=== PATIENT | male | born 1955 | race Caucasian/White ===

== ENCOUNTER 2017-03-02 19:30 | Inpatient (IN) | payer BC, OTHER ==
[~2017-03-02] VITALS: Ht 193 cm; Wt 92.7 kg
[2017-03-02] MEDS ORDERED: GLUCAGON FOR INJ 1 MG VIAL IV STA (19:50)
[2017-03-02] MEDS ORDERED: ONDANSETRON INJ 2 MG/ML 2 ML VIAL IV STA (19:50)
[2017-03-02] MEDS ORDERED: PROPOFOL IV EMULSION 10 MG/ML 20 ML VIAL IV ONE ×2 (20:28→22:52)
[2017-03-02] MEDS ORDERED: DEXAMETHASONE SOD INJ 4 MG/ML VIAL ONE (20:28)
[2017-03-02] MEDS ORDERED: SUCCINYLCHOLINE CHLORIDE 20 MG/ML 10 ML VIAL IV ONE (20:28)
[2017-03-02] MEDS ORDERED: MIDAZOLAM HCL 1 MG/ML 2ML VIAL ONE (20:28)
[2017-03-02] MEDS ORDERED: LIDOCAINE HCL 2% 2 ML VIAL (20MG/ML) ONE (20:28)
[2017-03-02] MEDS ORDERED: ONDANSETRON INJ 2 MG/ML 2 ML VIAL ONE ×2 (20:28→22:30)
[2017-03-02] MEDS ORDERED: FENTANYL CITRATE INJ 50 MCG/1 ML 2 ML VIAL ONE (20:28)
[2017-03-02] MEDS ORDERED: ROCURONIUM BROMIDE 10 MG/ML 5 ML VIAL ONE ×2 (20:28→22:11)
[2017-03-02] MEDS ORDERED: LACTATED RINGER'S 1000ML 1,000 ML IV PRN (20:39)
[2017-03-02] MEDS ORDERED: ONDANSETRON INJ 2 MG/ML 2 ML VIAL IV PRN (20:45)
[2017-03-02] MEDS ORDERED: FENTANYL CITRATE INJ 50 MCG/1 ML 2 ML VIAL IV PRN (20:45)
--- NOTE | 2017-03-02 20:52 | Endo History and Physical ---
History & Physical Date of Service: Mar 02, 2017. Chief Complaint: "I have food stuck in my throat" Referring Physician: Dr. Carvalho History of Present Illness 61 yo CM who presented to the ER tonight following his evening meal, with an acute obstruction of his esophagus. He states that he was eating a pork chop, and felt a piece get "stuck" in his esophagus. He was not able to tolerate fluids, or his own secretions and presented to the ER. He denies any history of GERD or daily PPI or H2RA therapy. He does admit to having a "piece of food stuck about ten years ago, but it passed on its own." He denies any further complaints at this time including abdominal or chest pain, palpitations, SOB, Cough, hematemesis, melena or hematochezia. Past Medical History None Past Surgical History Hx Cardiac Surgery: No Hx Internal Defibrillator: No Hx Pacemaker: No Hx Abdominal Surgery: No Hx of Implantable Prosthesis: No Hx Post-Op Nausea and Vomiting: No Hx Cancer Surgery: No Hx Thoracic Surgery: No Hx Orthopedic: No Hx Urinary Tract Surgery: No None Family History None Social History Smoking Status: Never Smoker Smokeless Tobacco Use: No Hx Substance Use: No Hx Alcohol Use: Yes Allergies Coded Allergies: No Known Allergies (Unverified , 03/02/17) Current Medications Reported Home Medications Medications Dose Route/Sig Max Daily Dose Days Date Category No Active Prescriptions or Reported Medications Rx Vital Signs Weight (Kilograms): 95.000 Height (Feet): 6 Height (Inches): 4.00 Date Time Temp Pulse Resp B/P Pulse Ox O2 Delivery O2 Flow Rate FiO2 03/02/17 19:41 95 Room Air 03/02/17 19:32 36.6 97 20 146/90 95 Room Air Physical Exam General Appearance: WD/WN, no apparent distress Respiratory/Chest: Auscultation: breath sounds normal Cardiovascular: Heart Auscultation: RRR Abdomen: Bowel Sounds: normal Inspection & Palpation: soft, non-distended, no tenderness, guarding & rebound Assessment and Plan Assessment: 61 yo CM who presents with an acute dysphagia from a food bolus. Plan: Emergent EGD now
--- NOTE | 2017-03-02 21:58 | GI REPORT ---
Procedure Date: 03/02/2017 8:37 PM Procedure: Upper GI endoscopy Indications: Removal of foreign body in the esophagus Medicines: General Anesthesia Complications: Hypoxia Estimated Blood Loss: Estimated blood loss: none. Procedure: Pre-Anesthesia Assessment: - Prior to the procedure, a History and Physical was performed, and patient medications and allergies were reviewed. The patient's tolerance of previous anesthesia was also reviewed. The risks and benefits of the procedure and the sedation options and risks were discussed with the patient. All questions were answered, and informed consent was obtained. Prior Anticoagulants: The patient has taken no previous anticoagulant or antiplatelet agents. ASA Grade Assessment: II - A patient with mild systemic disease. After reviewing the risks and benefits, the patient was deemed in satisfactory condition to undergo the procedure. After obtaining informed consent, the endoscope was passed under direct vision. Throughout the procedure, the patient's blood pressure, pulse, and oxygen saturations were monitored continuously. The Scope was introduced through the mouth, and advanced to the second part of duodenum. The upper GI endoscopy was accomplished without difficulty. The procedure was aborted due to the patient's respiratory instability (hypoxia). Performing chin lift, administering oxygen and treating with ventilation did not allow for the successful completion of the procedure. Dr. Rasheed of Anesthesia performed a bronchoscopy and noted food in the left bronchus. Findings: Food was found in the middle third of the esophagus and in the lower third of the esophagus. Removal of food was accomplished. Mucosal changes including ringed esophagus and stenosis were found in the entire esophagus. The stomach was normal. The examined duodenum was normal. Impression: - The procedure was aborted due to the patient's respiratory instability (hypoxia). Dr. Malone was consulted for bronchoscopy. - Food in the middle third of the esophagus and in the lower third of the esophagus. Removal was successful. - Esophageal mucosal changes suggestive of eosinophilic esophagitis. - Normal stomach. - Normal examined duodenum. Recommendation: - Use Protonix (pantoprazole) 40 mg PO daily. - Soft diet indefinitely. - Repeat the upper endoscopy in 2 weeks for biopsies of the mid-esophagus and possible dilation. Boogie Amato, 03/02/2017 9:57:30 PM This report has been signed electronically. Note Initiated On: 03/02/2017 8:37 PM I attest to the content of the Intraoperative Record and orders documented therein, exceptions below
[2017-03-02] MEDS ORDERED: NEOSTIGMINE METHYLSULFATE 5 MG/5 ML SYR ONE (22:11)
[2017-03-02] MEDS ORDERED: GLYCOPYRROLATE INJ 0.2 MG/ML VIAL ONE ×2 (22:11→23:27)
--- NOTE | 2017-03-02 23:45 | EMERGENCY ROOM VISIT NOTE ---
History Report prepared by Bette: Zachary Denton Under the Supervision of: Dr. Yann Mesa D.O. First contact with patient: 19:44 Chief Complaint: FOOD BOLUS Stated Complaint: SOMETHING STUCK IN THROAT Nursing Triage Summary: eating a pork chop at 1800 and now cannot swallow liquids. History of Present Illness The patient is a 61 year old male who presents to the Emergency Room with complaints of a persistent food bolus that occurred around 1815 tonight. The patient states that he was eating a piece of pork chop that "didn't go down correctly." He tried to wash this down with water and coca cola, which he vomited back up. The patient denies trouble swallowing his saliva. Source of History: patient Onset: 1814 tonight Position: other (GI system ) Timing: other (Persistent ) Modifying Factors (Relieving): other (None) Associated Symptoms: + vomiting Review of Systems See HPI for pertinent positives & negatives. A total of 10 systems reviewed and were otherwise negative. Past Medical & Surgical Medical Problems: (1) No chronic problems Family History Unknown family medical history Social History Smoking Status: Never Smoker Drug Use: none Marital Status: Housing Status: lives with family Occupation Status: employed Current/Historical Medications No Active Prescriptions or Reported Meds Allergies Coded Allergies: No Known Allergies (Unverified , 03/02/17) Physical Exam Vital Signs Date Time Temp Pulse Resp B/P Pulse Ox O2 Delivery O2 Flow Rate FiO2 03/02/17 20:40 84 18 138/83 95 Room Air 03/02/17 19:41 95 Room Air 03/02/17 19:32 36.6 97 20 146/90 95 Room Air Physical Exam CONSTITUTIONAL/VITAL SIGNS: Reviewed / noted above. GENERAL: Non-toxic in appearance. INTEGUMENTARY: Warm, dry, and Mertens. HEAD: Normocephalic. EYES: without scleral icterus or trauma. ENT/OROPHARYNX: clear and moist. LYMPHADENOPATHY/NECK: Is supple without lymphadenopathy or meningismus. RESPIRATORY: Lungs clear and equal. CARDIOVASCULAR: Regular rate and rhythm. GI/ABDOMEN: Soft and nontender. No organomegaly or pulsatile mass. No rebound or guarding. Normal bowel sounds. EXTREMITIES: Warm and well perfused. BACK: No CVA tenderness. NEUROLOGICAL: Intact without focal deficits. PSYCHIATRIC: normal affect. MUSCULOSKELETAL: Normally developed with good muscle tone. Medical Decision & Procedures Medications Administered Medications (Trade) Dose Ordered Sig/Rosalva Route Start Time Stop Time Status Last Admin Dose Admin Glucagon (Glucagon Inj) 1 mg NOW STAT IV 03/02/17 19:50 03/02/17 19:51 DC 03/02/17 19:50 1 MG Ondansetron HCl (Zofran Inj) 4 mg NOW STAT IV 03/02/17 19:50 03/02/17 19:51 DC 03/02/17 20:04 4 MG ED Course 1945: Previous medical records were reviewed. The patient was evaluated in room C2. A complete history and physical examination was performed. 1949: Ordered Zofran Injection 4 mg IV, Glucagon Injection 1 mg IV. 1955: I discussed the patient's case with Dr. Amato (GI). He will evaluate the patient for further management and care. 2033: The patient is going to OR for endoscopy with Dr. Amato. Medical Decision Differential diagnosis: Etiologies such as gastroenteritis, food borne illness, infections, appendicitis , diverticulitis, inflammatory bowel disease, esophageal obstruction, GI bleed, biliary pathology, as well as others were entertained. This is a 61-year-old male who presents to the ED with a chief complaint of esophageal bolus. The patient was eating pork chops around 6:15 PM and was unable to swallow after that. The patient states it is unable to swallow water. The patient was treated with IV fluids and glucagon IV. I spoke with Dr. Amato who took the patient to the OR for endoscopy. Consults Time Called: 1950 Consulting Physician: Dr. Amato (GI) Returned Call: 1955 I discussed the patient's case with Dr. Amato (GI). He will evaluate the patient for further management and care. Impression Primary Impression: Esophageal obstruction due to food impaction Scribe Attestation The scribe's documentation has been prepared under my direction and personally reviewed by me in its entirety. I confirm that the note above accurately reflects all work, treatment, procedures, and medical decision making performed by me. Departure Information Dispostion Being Evaluated By Hospitalist Prescriptions No Active Prescriptions or Reported Meds Referrals Kevin Carvalho D.O. (PCP) Patient Instructions My [facility]
--- NOTE | 2017-03-02 23:54 | Bronchoscopy Procedure Note ---
Bronchoscopy Procedure Note Procedure: Rigid and flexible Bronchoscopy, forcep retrieval Consent: Obtained through the patient's placed into the chart Preprocedural diagnosis: Aspiration of a pork chop Postprocedural diagnosis: Aspiration of a pork chop Start time: Please refer to anesthesia time she End time: Please refer to anesthesia time she Total time: Please refer to anesthesia time she Analgesia: GETA Sedation: GETA Procedure: The Olympus video bronchoscope and the Magency Digital rigid bronchoscope were used for this procedure Initially the Olympus flexible video bronchoscope was passed down through the endotracheal tube was approximately 4 cm above the level of deisi. Trachea: Diffuse aspiration secretions but otherwise anatomically within normal limits Deisi: Diffuse aspirated secretions otherwise anatomically within normal limits Right bronchial tree: Right mainstem bronchus: Anatomically within normal limits Right upper lobe: Anatomically within normal limits Bronchus intermedius: Anatomically within normal limits Right middle lobe: Anatomically within normal limits Right lower lobe: Anatomically within normal limits Findings: Diffuse aspirated material with the lung parenchyma easily friable to minimal bronchoscopic intervention Left bronchial tree: Left mainstem bronchus: 3 large aspirated food particulates in the left mainstem without complete obstruction Left upper lobe: Diffuse aspirated material obstructing the apical subsegment of the left upper lobe Lingula: Diffuse aspirated material Left lower lobe: Multiple aspirated material obstructing the left lower lobe takeoff Findings: Multiple subsegments occluded by aspirated material As we were unable to remove the larger particulates from the airway we then switched to the Dumon rigid trachea-scope size 12.2 The patient was extubated in the trachea scope was easily slid into position. Following this the large optical forceps were used for removal of 3 large pieces of aspirated material from the left mainstem. Following this the forceps were used to remove large particulates obstructing the takeoff to the left upper lobe apical subsegment as well as obstructing the left lower lobe. Within switch back to the Olympus flexible bronchoscope and all subsegments were flushed clean of all particulate material. At the end of the procedure the airways were globally inflamed can easily friable to minimal manipulation. Complications: None EBL: 3 cc Follow-up: Patient is to be extubated and followed in the PACU
[2017-03-03] VITALS (19 sets, daily range): BP systolic 103–133; BP diastolic 55–79; PULSE 76–104; TEMP 36.5–37.2; O2SAT 85–97; Ht 193 cm; Wt 92.7 kg
--- NOTE | 2017-03-03 00:03 | Pulmonary Consultation ---
History General Date of Service: Mar 02, 2017. Stated Complaint: Something Stuck In Throat, aspirated material HPI The patient is a 61 year old male who presents to [facility] with complaints of Something Stuck In Throat. The patient's primary care provider is Kevin Carvalho D.O.. 61-year-old gentleman brought into the ER following aspiration event during his meal. He was noted to have obstruction of his esophagus was brought to the operating room where EGD and foreign-body removal did occur. During the intubation prior to the procedure. The patient was noted to have immediate desaturation was signs via flow volume loop of notable intra-bronchial/tracheal obstruction. Due to this the anesthesiologist performed a quick bronchoscopic survey and noted complete obstruction of the left mainstem. I was then called to help retrieve this material. When I arrived the patient was intubated and obtunded. I did speak to his at length and obtained consent for initiation of bronchoscopy, rigid bronchoscopy in foreign-body removal. Historian: spouse, EMS Review of Systems Patient was intubated and obtunded Past Medical History Past Medical History: #1 possible aspiration event 10 years prior Past Surgical History: No significant contributory history Family History Unknown family medical history Social History Smoking Status: Never Smoker Marital status: Occupational Status: employed History of MDRO History of MDRO: No Allergies Coded Allergies: No Known Allergies (Unverified , 03/02/17) Current Medications Reported Home Medications Medications Dose Route/Sig Max Daily Dose Days Date Category No Active Prescriptions or Reported Medications Rx Physical Physical Exam Vital Signs: Date Time Temp Pulse Resp B/P Pulse Ox O2 Delivery O2 Flow Rate FiO2 03/02/17 20:40 84 18 138/83 95 Room Air 03/02/17 19:41 95 Room Air 03/02/17 19:32 36.6 97 20 146/90 95 Room Air General Appearance: other (intubated and obtunded) Head: NORMOCEPHALIC, ATRAUMATIC Eyes: other (size 8 ET tube approximately 26 cm at the teeth.) Neck: TRACHEA MIDLINE, NO STRIDOR Respiratory: rhonchi, wheezing Cardiovasular: REGULAR RATE/RHYTHM, NORMAL S1S2, NO M/G/R, NO MURMUR, NO GALLOP Abdomen: NON TENDER, NORMAL BOWEL SOUNDS, NO REBOUND, NO MASSES, NO GUARDING, NO ORGANOMEGALY Genitourinary - Male: EXTERNAL GENITALIA NORMAL Back: NORMAL INSPECTION, NO MIDLINE TENDERNESS, NO CVA TENDERNESS, NO PARAVERTEBRAL TTP Upper Extremities: NO EDEMA, NO DEFORMITY, NORMAL ROM Lower Extremities: NO EDEMA, NO DEFORMITY, NORMAL ROM Pulses: carotid (R) (2+), carotid (L) (2+), posterior tibial (R), posterior tibial (L) (2+) Neuro: other (intubated and obtunded/sedated) Reflexes: biceps (R) (2+), bicpes (L) (2+) Babinski Testing: right (downgoing), left (downgoing) Impression Assessment and Plan 61-year-old gentleman with aspirated material: Next on #1 aspirated material: Patient underwent flexible bronchoscopy as well as rigid bronchoscopy with removal of diffuse mucus/food particulate as well as 3 large pieces which were intermittently obstructing the left mainstem. Please review dictated report of the procedure.
[2017-03-03] MEDS ORDERED: LEVALBUTEROL 1.25MG/0.5ML NEB INH PRN (01:15)
[2017-03-03] MEDS ORDERED: IPRATROPIUM BROMIDE NEB SOLN 0.02% 2.5 ML VIAL INH PRN (01:15)
[2017-03-03] MEDS ORDERED: COUGH DROP (SUGAR FREE) LOZ 24 LOZ/1 BOX ONE (01:19)
[2017-03-03] MEDS ORDERED: CHLORASEPTIC 1.4% SOLN 180 ML BTL MT PRN (01:30)
[2017-03-03] MEDS ORDERED: NURSING VERBAL MED ORDER ONE (01:30)
[2017-03-03 01:31] LABS: URINE APPEARANCE CLEAR (CLEAR); URINE BILIRUBIN NEG (NEG); URINE COLOR YELLOW; URINE EPITHELIAL CELL AUTO 0-5 /lpf (0-5); URINE NITRITE NEG (NEG); URINE PH 5.5 (4.5-7.5); URINE SPECIFIC GRAVITY 1.016 (1.000-1.030); UROBILINOGEN NEG (NEG)
[2017-03-03 01:32] LABS: MANUAL MICROSCOPIC REQUIRED? NO; REVIEW REQ? NO
[2017-03-03 01:38] LABS: PARTIAL THROMBOPLASTIN RATIO 1.2; PROTHROMBIN TIME (PATIENT) 10.8 SECONDS (9.0-12.0)
[2017-03-03 01:51] LABS: BASO % 1.2 %; BASO ABS # 0.08 K/uL (0-0.2); EOS % 3.6 %; LYMPH % 28.7 %; LYMPH ABS # 1.86 K/uL (1.2-3.4); MEAN CELL VOLUME 84.8 fL (80-100); MEAN CORPUSCULAR HEMOGLOBIN 30.7 pg (25-34); MEAN PLATELET VOLUME 9.2 fL (7.4-10.4); NEUT % 51.5 %; PLATELET COUNT 207 K/uL (130-400); RED BLOOD COUNT 4.95 M/uL (4.7-6.1); WHITE BLOOD COUNT 6.47 K/uL (4.8-10.8)
[2017-03-03] MEDS: IPRATROPIUM BROMIDE NEB SOLN 0.02% 2.5 ML VIAL INH SCH ×4 (01:56→19:25)
[2017-03-03] MEDS: LEVALBUTEROL 1.25MG/0.5ML NEB INH SCH ×4 (01:56→19:25)
[2017-03-03 02:06] LABS: COMPLETE YES; MEAN CORPUSCULAR HGB CONC 36.2 g/dl (32-36)
[2017-03-03 02:07] LABS: ALB/GLOB RATIO 1.1 (0.9-2); ALKALINE PHOSPHATASE 63 U/L (45-117); ALT/SGPT 32 U/L (12-78); AST/SGOT 28 U/L (15-37); BLOOD UREA NITROGEN 22 mg/dl (7-18); BUN/CREATININE RATIO 16.6 (10-20); CALCIUM 8.8 mg/dl (8.5-10.1); CARBON DIOXIDE 29 mmol/L (21-32); CHLORIDE 105 mmol/L (98-107); CKMB/CK RATIO 1.6 (0-3.0); GLUCOSE 104 mg/dl (70-99); SODIUM 141 mmol/L (136-145)
--- NOTE | 2017-03-03 02:51 | Anesthesiology Progress Note ---
Anesthesia Post Op Note Date & Time Mar 03, 2017 at 00:38 Vital Signs Pain Intensity: 0 Vital Signs Past 12 Hours Date Time Temp Pulse Resp B/P Pulse Ox O2 Delivery O2 Flow Rate FiO2 03/02/17 20:40 84 18 138/83 95 Room Air 03/02/17 19:41 95 Room Air 03/02/17 19:32 36.6 97 20 146/90 95 Room Air Notes Mental Status: alert / awake / arousable, participated in evaluation Pt Amnestic to Procedure: Yes Nausea / Vomiting: adequately controlled Pain: adequately controlled Airway Patency, RR, SpO2: stable & adequate BP & HR: stable & adequate Hydration State: stable & adequate Anesthetic Complications: see below Pt w/ no PMH came in w/ food bolus (pork chop). Plan was to undergo EGD by Dr. Amato. When I met the pt pre-op, he was spitting into a bag, clearly not able to swallow his secretions. He appeared to be in no respiratory distress, was satting 95% on RA, and his lungs sounded clear b/l. Given the aspiration risk, my plan was for general anesthesia w/ endotracheal tube using rapid sequence induction (RSI) and cricoid pressure. We went to the OR. I applied monitors and pre-oxygenated for several minutes. I kept the head of the bed elevated. Just as I began to give the propofol to start the RSI and as cricoid pressure was starting to be applied, the pt began coughing. I finished the propofol, gave the succinylcholine, and began direct laryngoscopy w/ a Mac 4. I saw a moderate amount of thin, clear fluid (looked like saliva) in the oropharynx along w/ a very scant amount of particulate matter (looked like tiny pieces of food). I easily suctioned this. I then got a grade I view of the cords, which were completely clear of any material. I passed the tip of the tube through the cords but due to the angle of the cords, the tip was hitting the anterior wall of the trachea just beyond the cords so that I could not easily pass the tube. I asked for the stylet to be withdrawn and I was then able to gently pass the tube through the cords. Other than the few seconds of suctioning and pulling back on the stylet, the intubation was easy. I confirmed end tidal CO2 and equal breath sounds so I secured the tube, which was fairly deep at 25 or 26 cm given the pt's size. The bite block was placed for the EGD. SpO2 immediately after intubation was in the mid-high 90s. Dr. Amato began the procedure and was very quickly able to push the food bolus into the stomach. He was then preparing to biopsy the esophagus when I heard the SpO2 begin to decrease. I noticed the ETCO2 decreasing and airway pressures increasing until there was minimal ETCO2 and alarms for high airway pressure. I told Dr. Amato to remove his scope which he quickly did. I tried to hand ventilate with the bag but met a lot of resistance and was unable to move any significant amount of air. The pt appeared to be fighting w/ his own respiratory efforts so I gave additional neuromuscular blockade. I saw no obvious obstruction in the circuit and felt bronchospasm to be unlikely given what should have been an adequate depth of anesthesia and no h/o reactive airway disease or smoking. I was concerned about mechanical obstruction within the tube or a problem w/ the ventilator on the anesthesia machine so I asked for an Ambu bag and removed the tube. I saw nothing significant in the tube. I quickly inserted an oral airway and began attempting ventilation (2 provider technique). We did appear to be moving some air though it was difficult. The lowest SpO2 I saw was 78%. With mask ventilation, it krissy to the mid 80s. Since we were now able to ventilate somewhat, I felt that whatever obstruction was present previously had improved, so I decided to reintubate. I asked for a Glidescope. I easily obtained a grade I view and quickly passed the tube through the cords which again required pulling back on the stylet. I was able to ventilate through the tube w/ the Ambu bag. I saw chest rise and Dr. Amato heard coarse, b/l breath sounds. SpO2 continued to slowly rise. I removed the Ambu bag and hooked the tube to my circuit. I saw ETCO2. I listened and heard minimal breath sounds on the left side and airway pressures were higher than expected given the pt's thin stature. These two factors would suggest that the tube was in the right mainstem bronchus, which would seem likely given the tube's depth around 26 cm, but I knew this not to be the case since I watched the cuff of the tube pass the cords when I intubated and stopped. This was at 26 cm. I therefore knew that the tube was in the trachea but that something was preventing ventilation of the left lung. This suspicion was reinforced by capnography which revealed an obvious obstructive pattern. I considered a foreign body (food) and asked for the flexible bronchoscope. At this point, the SpO2 was in the mid 90s. It had continued to slowly rise. Total time spent < 90% was < 5 minutes. I advanced the flexible bronchoscope until it emerged from the tip of the tube. I saw the deisi and could clearly see a foreign body at the takeoff of the left mainstem bronchus nearly obstructing the lumen. I saw nothing on the right. I advanced into the right side to see the takeoff of the right upper lobe bronchus to confirm that the bifurcation that I saw just beyond the tube was indeed the deisi, and it was. I again saw nothing on the right. I pulled back to deisi and again saw the foreign body on the left. I hooked up suction and gave one attempt at removing it but was unable as it appeared to be too large. I stopped as I didn't want pull it back and occlude the deisi, totally abolishing ventilation (again). While the foreign body appeared visually to obstruct a significant portion of the left mainstem bronchus, it did appear that some air was able to pass it. It would rise and fall slightly with ventilation. I tried to keep my airway pressures to a minimum to avoid sending the piece more distally. We paged Pulmonary Medicine. At this point, SpO2 was 98%. Dr. Amato spoke to Dr. Malone who quickly arrived. I told him the story. He did a quick bronch w/ my portable flexible scope and saw a foreign body in the left mainstem, but it was not as obvious as before. A portion of it seemed to have migrated. We waited for the respiratory therapist to arrive w/ the necessary equipment. Meanwhile, Dr. Amato paged Dr. Valencia, gave him the story, and asked him to admit the pt and see him after he left the OR. When the RT arrived, Dr. Malone began a flexible bronchoscopy using the RT's scope. He found material scattered about both lungs but was unable to remove it w/ the flexible scope. He asked for the rigid bronchoscope. Once it arrived and the necessary equipment was ready, he placed a mouth guard and I turned off the anesthetic gas and extubated the pt after suctioning the oropharynx. He passed the scope through the cords. I hooked my circuit to the scope and began to ventilate or at least passively oxygenate. SpO2 was 96-97% throughout the procedure. I maintained anesthesia w/ propofol. He again found material scattered about both lungs and removed what he could. When he was done, my plan was to reintubate so that I could reverse the neuromuscular blockade and emerge the pt gradually and extubate when he was fully awake and able to protect his airway. I again got a grade I view w/ the Glidescope but at this point, the pt was breathing spontaneously and his cords were not widely open. I was unable to easily pass the tube. Since he was beginning to emerge, was satting in the mid-high 90s, and appeared to have nothing in the oropharynx, I decided to not reintubate the pt. I placed an oral airway and gave O2 via simple facemask. I tried to suction as much as I could w/ the Yankauer and a soft catheter but he still sounded like he had some secretions in his upper airway. He was beginning to arouse, cough, and SpO2 was stable in the mid 90s so we left the OR. We went to the ICU to recover due to the time of day. Vitals were stable. SpO2 was 95% on 10 L facemask. He continued to wake up and cough to clear his airway. I went to talk to the pt's . We had a lengthy discussion. I explained to her what happened and answered her questions the best I could. I went back to see the pt in the ICU and Dr. Valencia was there. I gave him the story. At this point, the pt's SpO2 was in the mid 90s on 4L NC. He was awake and asking questions and his was at his side. He's going to be admitted to PCU per Dr. Valencia. He's getting a CXR, starting antibiotics, and starting nebulizers. The pt will have to be watched carefully over the next 12-24 hours as he will likely have a chemical pneumonitis and could develop ARDS. Though the exact moment of aspiration was not obvious, I think it is unlikely that it happened before he went to the OR since he was not coughing, was in no respiratory distress, had clear lungs, and a normal SpO2 on room air. It likely occurred when the pt began coughing just before induction (though it is unusual that I saw no particulate matter around the cords and minimal in the oropharynx) . This would explain why I was suddenly unable to ventilate, not immediately after, after but shortly after intubation. The aspirated material was likely initially in the trachea, then migrated to completely occlude the deisi temporarily. It then migrated further so that I could ventilate, though largely only the right lung for a time. Though it appeared initially to have only gone to the left mainstem bronchus, this was apparently only one large piece, as material was found throughout both sides.
[2017-03-03] MEDS ORDERED: LEVALBUTEROL/IPRATROPIUM NEB INH SCH (03:00)
[2017-03-03] MEDS ORDERED: PIPERACILL/TAZOBAC IV 4.5 GM in DEXTROSE 5% 100ML 100 ML IV SCH (03:15)
[2017-03-03] MEDS ORDERED: PIPERACILL/TAZOBAC IV 3.375 GM in DEXTROSE 5% 100ML IV STA (03:26)
[2017-03-03] MEDS ORDERED: PIPERACILL/TAZOBAC CONSULT ACTIVE PRN (03:30)
--- NOTE | 2017-03-03 04:47 | Medical Consult ---
Consultation Date of Consultation: Mar 03, 2017. THIS IS AN ADMISSION NOTE. Attending Physician: Eleno Valencia M.D. Reason for Consultation: Aspiration pneumonitis History of Present Illness 61-year-old male with no significant past medical history presented to the ER with complaints of "something stuck in his esophagus" while he was eating a pork chop. He had difficulty swallowing any fluids. He did have a similar episode about 10 years ago when he had a piece of food stuck but it had passed on its own. He was taken for an emergent EGD . The food bolus was pushed into his stomach. He was noted to have desaturations to around 78 and a quick bronchoscopic survey by the anesthesiologist revealed complete obstruction of his left mainstem bronchus. Dr. Malone was consulted who performed a flexible bronchoscopy and rigid bronchoscopy and retrieved 3 large pieces of aspirated material from the left main stem bronchus. He was recovered in the ICU and placed on a mask with 10 L O2. He was transferred to telemetry for further monitoring. He is currently on 5 L O2 via nasal cannula. Denies any chest pain/tightness, shortness of breath, palpitations, dizziness. Complains of soreness in his throat. Past Medical/Surgical History Medical Problems: (1) Esophageal obstruction due to food impaction Status: Acute Family History Unknown family medical history Social History Smoking Status: Never Smoker Smokeless Tobacco Use: No Drug Use: none Marital Status: Housing Status: lives with family Occupation Status: employed Allergies Coded Allergies: No Known Allergies (Verified , 03/21/17) Current Inpatient Medications Current Inpatient Medications Medications (Trade) Dose Ordered Sig/Rosalva Route Start Time Stop Time Status Last Admin Dose Admin Ondansetron HCl (Zofran Inj) 4 mg Q6H PRN IV 03/03/17 00:15 04/02/17 00:14 Ipratropium [place] (Atrovent 0.02% 0.5MG/2.5ML Neb) 0.5 mg Q6R INH 03/03/17 03:00 04/02/17 02:59 03/03/17 01:56 0.5 MG Levalbuterol (Xopenex 1.25MG/ 0.5ML Neb) 1.25 mg Q6R INH 03/03/17 03:00 04/02/17 02:59 03/03/17 01:56 1.25 MG Ipratropium [place] (Atrovent 0.02% 0.5MG/2.5ML Neb) 0.5 mg Q2H PRN INH 03/03/17 01:15 04/02/17 01:14 Levalbuterol (Xopenex 1.25MG/ 0.5ML Neb) 1.25 mg Q2H PRN INH 03/03/17 01:15 04/02/17 01:14 Phenol 1 sprays 1 sprays Q2H PRN MT 03/03/17 01:30 04/02/17 01:29 03/03/17 01:58 1 SPRAYS Piperacillin Sod/ Tazobactam Sod/ Dextrose (Zosyn Iv/D5 100ml) 115 ml @ 28.75 mls/ hr Q8H IV 03/03/17 08:00 03/10/17 07:59 Piperacillin Sod/ Tazobactam Sod (Consult) 1 ea UD PRN N/A 03/03/17 03:30 04/02/17 03:29 Review of Systems Constitutional: No chills, No fever ENT: + sore throat, No hearing loss Respiratory: No cough, No dyspnea on exertion Cardiovascular: No chest pain Abdomen: No nausea, No pain, No vomiting Genitourinary - Male: No hematuria Neurologic: No memory loss Physical Exam Date Time Temp Pulse Resp B/P Pulse Ox O2 Delivery O2 Flow Rate FiO2 03/03/17 03:25 37.0 93 20 128/74 96 Nasal Cannula 4.0 03/03/17 02:25 36.5 99 19 132/79 95 Nasal Cannula 5.0 03/03/17 01:57 88 16 95 Nasal Cannula 5.0 03/03/17 01:55 36.8 96 20 122/73 97 Nasal Cannula 5.0 03/03/17 01:25 37.2 82 22 129/76 94 Nasal Cannula 5.0 03/03/17 01:10 81 20 122/79 93 Nasal Cannula 5.0 03/03/17 00:55 37.0 81 26 133/77 92 Nasal Cannula 5.0 03/03/17 00:40 36.8 84 30 131/71 92 Nasal Cannula 5.0 03/03/17 00:38 Nasal Cannula 5.0 03/03/17 00:20 78 19 131/80 93 Nasal Cannula 4 03/03/17 00:10 76 19 124/85 93 Nasal Cannula 4 03/03/17 00:01 82 21 157/79 94 Nasal Cannula 6 03/02/17 23:46 88 21 126/87 94 Mask 8 03/02/17 23:40 36.4 91 21 137/85 95 Mask 10 03/02/17 20:40 84 18 138/83 95 Room Air 03/02/17 19:41 95 Room Air 03/02/17 19:32 36.6 97 20 146/90 95 Room Air General Appearance: WD/WN, no apparent distress Head: normocephalic Eyes: normal inspection Neck: supple Respiratory/Chest: no respiratory distress, no accessory muscle use, + rhonchi , + wheezing Cardiovascular: + tachycardia Abdomen/GI: normal bowel sounds, non tender, soft Genitourinary - Male: normal male genitalia Back: normal inspection Extremities/Musculoskelatal: normal inspection, no pedal edema Neurologic/Psych: alert, normal mood/affect, oriented x 3 Skin: normal color Laboratory Results Last 24 Hours Test 03/02/17 19:56 03/03/17 01:05 White Blood Count 6.47 K/uL Red Blood Count 4.95 M/uL Hemoglobin 15.2 g/dL Hematocrit 42.0 % Mean Corpuscular Volume 84.8 fL Mean Corpuscular Hemoglobin 30.7 pg Mean Corpuscular Hemoglobin Concent 36.2 g/dl Platelet Count 207 K/uL Mean Platelet Volume 9.2 fL Neutrophils (%) (Auto) 51.5 % Lymphocytes (%) (Auto) 28.7 % Monocytes (%) (Auto) 15.0 % Eosinophils (%) (Auto) 3.6 % Basophils (%) (Auto) 1.2 % Neutrophils # (Auto) 3.33 K/uL Lymphocytes # (Auto) 1.86 K/uL Monocytes # (Auto) 0.97 K/uL Eosinophils # (Auto) 0.23 K/uL Basophils # (Auto) 0.08 K/uL RDW Standard Deviation 41.7 fL RDW Coefficient of Variation 13.6 % Immature Granulocyte % (Auto) 0.0 % Immature Granulocyte # (Auto) 0.00 K/uL Prothrombin Time 10.8 SECONDS Prothromb Time International Ratio 1.0 Activated Partial Thromboplast Time 30.1 SECONDS Partial Thromboplastin Ratio 1.2 Sodium Level 141 mmol/L Potassium Level 4.0 mmol/L Chloride Level 105 mmol/L Carbon Dioxide Level 29 mmol/L Anion Gap 7.0 mmol/L Blood Urea Nitrogen 22 mg/dl Creatinine 1.30 mg/dl Est Creatinine Clear Calc Drug Dose 75.1 ml/min Estimated GFR () 69.2 Estimated GFR (Non- 59.7 BUN/Creatinine Ratio 16.6 Random Glucose 104 mg/dl Calcium Level 8.8 mg/dl Total Bilirubin 0.6 mg/dl Aspartate Amino Transf (AST/SGOT) 28 U/L Alanine Aminotransferase (ALT/SGPT) 32 U/L Alkaline Phosphatase 63 U/L Total Creatine Kinase 228 U/L Creatine Kinase MB 3.6 ng/ml Creatine Kinase MB Ratio 1.6 Troponin I < 0.015 ng/ml Total Protein 7.8 gm/dl Albumin 4.0 gm/dl Globulin 3.8 gm/dl Albumin/Globulin Ratio 1.1 Urine Color YELLOW Urine Appearance CLEAR Urine pH 5.5 Urine Specific [place] 1.016 Urine Protein NEG Urine Glucose (UA) NEG Urine Ketones 1+ Urine Occult Blood 1+ Urine Nitrite NEG Urine Bilirubin NEG Urine Urobilinogen NEG Urine Leukocyte Esterase NEG Urine WBC (Auto) 0 /hpf Urine RBC (Auto) 10-30 /hpf Urine Hyaline Casts (Auto) 0 /lpf Urine Epithelial Cells (Auto) 0-5 /lpf Urine Bacteria (Auto) NEG Assessment & Plan 61-year-old male status post EGD for food bolus and status post flexible and rigid bronchoscopy for foreign body retrieval from left mainstem bronchus. Currently on nasal cannula. Aspiration pneumonitis : Status post bronchoscopy Chest x-ray ordered - Currently on nasal cannula with 5 L O2 saturating in the high 90s - Xopenex/Atrovent every 6 hours - Zosyn Food bolus status post EGD retrieval: Impression: - The procedure was aborted due to the patient's respiratory instability (hypoxia). Dr. Malone was consulted for bronchoscopy. - Food in the middle third of the esophagus and in the lower third of the esophagus. Removal was successful. - Esophageal mucosal changes suggestive of eosinophilic esophagitis. - Normal stomach. - Normal examined duodenum. Recommendation: - Use Protonix (pantoprazole) 40 mg PO daily. - Soft diet indefinitely. - Repeat the upper endoscopy in 2 weeks for biopsies of the mid-esophagus and possible dilation. Painless hematuria UA: 1+ ketones, 1+ occult blood, 10-30 RBCs - Urine culture pending - Cytology ordered - Renal ultrasound ordered DVT prophylaxis: SCDs Full code Disposition: Monitor in telemetry Assessment and Plan Attending Addendum: I have physically seen and examined this patient, have directed their medical care, have supervised the medical residents activities, and agree with the H&P as noted above, with the following changes: NONE
--- NOTE | 2017-03-03 07:08 | DIAGNOSTIC IMAGING REPORT ---
CHEST ONE VIEW PORTABLE CLINICAL HISTORY: Aspiration. COMPARISON STUDY: No previous studies for comparison. FINDINGS: Lung volumes are normal. There is no pneumothorax or pleural effusion. There is no evidence of pulmonary edema. There is left lower lung consolidation. There is also suspected right infrahilar opacity. Cardiac size is normal. Mediastinal contours are normal. IMPRESSION: Bibasilar opacities, greater on the left. The findings suggest pneumonia and could be seen in the setting of aspiration. Radiographic follow up to ensure resolution is recommended. Electronically signed by: Jonah Monsivais M.D. 03/03/2017 7:06 AM Dictated Date/Time: 03/03/2017 7:04 AM
--- NOTE | 2017-03-03 07:40 | Hospitalist Progress Note ---
Hospitalist Progress Note Date of Service Mar 03, 2017. (Kirstie Ingram PA-C) Subjective Pt evaluation today including: conversation w/ patient, conversation w/ family , physical exam, chart review, lab review, review of studies, review of inpatient medication list Pain: Lower gum and throat pain PO Intake: Soft foods Voiding: no voiding problems The patient was seen and examined this morning. is present at bedside. He reports feeling slightly better this morning, but still notes he's short of breath whenever he ambulates from bed to bathroom. Spoke with nursing who states he becomes tachycardic with any ambulation. Pt c/o nausea in waves, no vomiting. He is tolerating applesauce when I was in the room. + cough, nonproductive. Additional Comments: Constitutional: No fever, chills, sweats, fatigue or weakness Eyes: No diplopia, no changes in vision ENT: + sore gums, denies sore throat, no tinnitus, or trouble swallowing Respiratory: + shortness of breath with ambulation, No dyspnea at rest, no cough or sputum Cardiovascular: No chest pain, palpitations, or flutter Abdomen: + Waves of nausea , No pain, No constipation, No diarrhea, No vomiting Musculoskeletal: No calf pain, No joint pain, No swelling Genitourinary : No dysuria or urinary frequency, No hematuria Neurologic: No numbness/tingling, no difficulty with ambulation, no sensory or motor deficits Psychiatric: No depression or anxiety symptoms Endocrine: No fatigue, No weight changes Integumentary: No itch, No rash (Kirstie Ingram, JAMAAL) Objective Vital Signs Date Time Temp Pulse Resp B/P Pulse Ox O2 Delivery O2 Flow Rate FiO2 03/03/17 05:47 36.8 92 18 125/74 94 Nasal Cannula 3.0 03/03/17 04:25 37.1 94 18 131/72 93 Nasal Cannula 3.0 03/03/17 04:00 Nasal Cannula 4.0 03/03/17 03:25 37.0 93 20 128/74 96 Nasal Cannula 4.0 03/03/17 02:25 36.5 99 19 132/79 95 Nasal Cannula 5.0 03/03/17 01:57 88 16 95 Nasal Cannula 5.0 03/03/17 01:55 36.8 96 20 122/73 97 Nasal Cannula 5.0 03/03/17 01:25 37.2 82 22 129/76 94 Nasal Cannula 5.0 03/03/17 01:10 81 20 122/79 93 Nasal Cannula 5.0 03/03/17 00:55 37.0 81 26 133/77 92 Nasal Cannula 5.0 03/03/17 00:40 36.8 84 30 131/71 92 Nasal Cannula 5.0 03/03/17 00:38 Nasal Cannula 5.0 03/03/17 00:20 78 19 131/80 93 Nasal Cannula 4 03/03/17 00:10 76 19 124/85 93 Nasal Cannula 4 03/03/17 00:01 82 21 157/79 94 Nasal Cannula 6 03/02/17 23:46 88 21 126/87 94 Mask 8 03/02/17 23:40 36.4 91 21 137/85 95 Mask 10 03/02/17 20:40 84 18 138/83 95 Room Air 03/02/17 19:41 95 Room Air 03/02/17 19:32 36.6 97 20 146/90 95 Room Air (Kirstie Ingram, PA-C) Physical Exam Notes: General: awake, alert, no apparent distress Head: Normocephalic, atraumatic ENT: PERRL, EOMI, no pharyngeal exudate, mucous membranes moist Chest: + Nonproductive cough, diminished breath sounds at left base slightly, on room air, no adventitious breath sounds Cardiac: Regular rate and rhythm, no murmur, no JVD, normal peripheral pulses, good capillary refill Abdominal: NABS x 4 quadrants, soft, nontender to palpation, no rebound, guarding or tenderness Extremities: Normal inspection, no peripheral edema or erythema, calfs nontender to palpation Psych: Normal mood and affect Neuro: AAO x 3, strength intact bilaterally and related 5/5, no motor deficits, speech is clear, no peripheral sensory deficits (Kirstie Ingram, PA-C) Laboratory Results Last 24 Hours Test 03/02/17 19:56 03/03/17 01:05 White Blood Count 6.47 K/uL Red Blood Count 4.95 M/uL Hemoglobin 15.2 g/dL Hematocrit 42.0 % Mean Corpuscular Volume 84.8 fL Mean Corpuscular Hemoglobin 30.7 pg Mean Corpuscular Hemoglobin Concent 36.2 g/dl Platelet Count 207 K/uL Mean Platelet Volume 9.2 fL Neutrophils (%) (Auto) 51.5 % Lymphocytes (%) (Auto) 28.7 % Monocytes (%) (Auto) 15.0 % Eosinophils (%) (Auto) 3.6 % Basophils (%) (Auto) 1.2 % Neutrophils # (Auto) 3.33 K/uL Lymphocytes # (Auto) 1.86 K/uL Monocytes # (Auto) 0.97 K/uL Eosinophils # (Auto) 0.23 K/uL Basophils # (Auto) 0.08 K/uL RDW Standard Deviation 41.7 fL RDW Coefficient of Variation 13.6 % Immature Granulocyte % (Auto) 0.0 % Immature Granulocyte # (Auto) 0.00 K/uL Prothrombin Time 10.8 SECONDS Prothromb Time International Ratio 1.0 Activated Partial Thromboplast Time 30.1 SECONDS Partial Thromboplastin Ratio 1.2 Sodium Level 141 mmol/L Potassium Level 4.0 mmol/L Chloride Level 105 mmol/L Carbon Dioxide Level 29 mmol/L Anion Gap 7.0 mmol/L Blood Urea Nitrogen 22 mg/dl Creatinine 1.30 mg/dl Est Creatinine Clear Calc Drug Dose 75.1 ml/min Estimated GFR () 69.2 Estimated GFR (Non- 59.7 BUN/Creatinine Ratio 16.6 Random Glucose 104 mg/dl Calcium Level 8.8 mg/dl Total Bilirubin 0.6 mg/dl Aspartate Amino Transf (AST/SGOT) 28 U/L Alanine Aminotransferase (ALT/SGPT) 32 U/L Alkaline Phosphatase 63 U/L Total Creatine Kinase 228 U/L Creatine Kinase MB 3.6 ng/ml Creatine Kinase MB Ratio 1.6 Troponin I < 0.015 ng/ml Total Protein 7.8 gm/dl Albumin 4.0 gm/dl Globulin 3.8 gm/dl Albumin/Globulin Ratio 1.1 Urine Color YELLOW Urine Appearance CLEAR Urine pH 5.5 Urine Specific [place] 1.016 Urine Protein NEG Urine Glucose (UA) NEG Urine Ketones 1+ Urine Occult Blood 1+ Urine Nitrite NEG Urine Bilirubin NEG Urine Urobilinogen NEG Urine Leukocyte Esterase NEG Urine WBC (Auto) 0 /hpf Urine RBC (Auto) 10-30 /hpf Urine Hyaline Casts (Auto) 0 /lpf Urine Epithelial Cells (Auto) 0-5 /lpf Urine Bacteria (Auto) NEG (Kirstie Ingram, JAMAAL) Assessment and Plan 61-year-old male status post EGD for food bolus and status post flexible and rigid bronchoscopy for foreign body retrieval from left mainstem bronchus. Currently on nasal cannula. Aspiration pneumonitis : Status post bronchoscopy Chest x-ray reviewed: IMPRESSION: Bibasilar opacities, greater on the left. The findings suggest pneumonia and could be seen in the setting of aspiration. Radiographic follow up to ensure resolution is recommended. - O2 has been weaned down to 3L, sats ~92% this morning. - Xopenex/Atrovent every 6 hours - Zosyn (day #2) - Continue pulmonary toilet with incentive spirometry, flutter - Pt still becoming tachycardic with ambulation, if walks today and improves then can consider moving him out of tele. Food bolus status post EGD retrieval: - EGD on 03/02: procedure aborted due to respiratory instability by Dr. Malone - Food in the middle and lower third of esophagus s/p removal: plan for repeat in 2 weeks for biopsies in the mid-esophagus and possible dilation - Possible eosinophilic esophagitis. - Cont protonix 40 mg PO daily. - Soft diet indefinitely. Painless hematuria UA: 1+ ketones, 1+ occult blood, 10-30 RBCs - Urine culture pending - Cytology ordered - Renal ultrasound ordered DVT ppx: SCDs CODE STATUS: Full code Disposition: Monitor in telemetry for now, possible transfer to med/surg later today, d/c likely in 1-2 days (Kirstie Ingram, JAMAAL) Attending Attestation: Pt seen/examined, chart reviewed, care plan d/w RIVAS Ingram. I agree w/ the wright components of her documentation. Pt feels better but still with BARTH. Minimal cough. Tolerating diet. Reports dysphagia for 5-10 years. No food allergies. VSS O2 requirement persists lungs - bibasilar rales, worse on left; no increased work of breathing A/P: 1. food impaction in the setting the setting of chronic dysphagia s/p EGD last night; concern for eosinophilic esophagitis repeat EGD 2-3 weeks [facility] soft diet PPI 2. acute hypoxic resp failure 2nd to aspiration of stomach contents - cont NC O2, abx, pulmonary toilet, time updated at bedside Tarik Day MD (Tarik Day MD)
--- NOTE | 2017-03-03 08:37 | DIAGNOSTIC IMAGING REPORT ---
ULTRASOUND KIDNEYS AND BLADDER CLINICAL HISTORY: Hematuria. COMPARISON STUDY: No priors. TECHNIQUE: Real-time, grayscale, and color flow sonography of the kidneys and bladder is performed. Images are reviewed in the transverse and longitudinal planes. FINDINGS: Kidneys: The kidneys demonstrate mild cortical atrophy. The right kidney measures 10.3 x 4.2 x 5.0 cm and the left kidney measures 10.6 x 5.9 x 5.1 cm. There is no hydronephrosis. No shadowing renal calculi are identified. There is no sonographic evidence of contour deforming renal mass lesion. No perinephric fluid is identified. Bladder: The bladder is normal in appearance. Bilateral ureteral jets were seen. IMPRESSION: 1. The kidneys demonstrate mild cortical atrophy and are without hydronephrosis. 2. The bladder was normal as imaged. Electronically signed by: Dallas Stewart M.D. 03/03/2017 8:35 AM Dictated Date/Time: 03/03/2017 8:34 AM
[2017-03-03 08:41] LABS: HEMATOCRIT 39.5 % (42-52); MEAN CELL VOLUME 85.9 fL (80-100); MEAN CORPUSCULAR HEMOGLOBIN 30.4 pg (25-34); MEAN CORPUSCULAR HGB CONC 35.4 g/dl (32-36); MEAN PLATELET VOLUME 8.9 fL (7.4-10.4); PLATELET COUNT 176 K/uL (130-400); WHITE BLOOD COUNT 8.64 K/uL (4.8-10.8)
[2017-03-03] MEDS: PIPERACILL/TAZOBAC IV 3.375 GM in DEXTROSE 5% 100ML IV SCH ×2 (09:07→21:10)
[2017-03-03 09:13] LABS: BUN/CREATININE RATIO 14.7 (10-20); CALCIUM 8.5 mg/dl (8.5-10.1); CREATININE 1.3 mg/dl (0.60-1.40); POTASSIUM 3.7 mmol/L (3.5-5.1)
[2017-03-03 09:17] LABS: BASO % 0.1 %; BASO ABS # 0.01 K/uL (0-0.2); COMPLETE YES; IG% 0.2 %; LYMPH % 6.3 %; LYMPH ABS # 0.54 K/uL (1.2-3.4); NEUT % 87.4 %
[2017-03-03] MEDS: ONDANSETRON INJ 2 MG/ML 2 ML VIAL IV PRN ×2 (11:54→21:10)
--- NOTE | 2017-03-03 12:13 | Anesthesiology Progress Note ---
Anesthesia Post Op Note Date & Time Mar 03, 2017 at 11:49 Vital Signs Pain Intensity: 0 Vital Signs Past 12 Hours Date Time Temp Pulse Resp B/P Pulse Ox O2 Delivery O2 Flow Rate FiO2 03/03/17 07:53 36.7 76 20 120/72 94 Nasal Cannula 3.0 03/03/17 07:34 76 14 94 Nasal Cannula 3.0 03/03/17 05:47 36.8 92 18 125/74 94 Nasal Cannula 3.0 03/03/17 04:25 37.1 94 18 131/72 93 Nasal Cannula 3.0 03/03/17 04:00 Nasal Cannula 4.0 03/03/17 03:25 37.0 93 20 128/74 96 Nasal Cannula 4.0 03/03/17 02:25 36.5 99 19 132/79 95 Nasal Cannula 5.0 03/03/17 01:57 88 16 95 Nasal Cannula 5.0 03/03/17 01:55 36.8 96 20 122/73 97 Nasal Cannula 5.0 03/03/17 01:25 37.2 82 22 129/76 94 Nasal Cannula 5.0 03/03/17 01:10 81 20 122/79 93 Nasal Cannula 5.0 03/03/17 00:55 37.0 81 26 133/77 92 Nasal Cannula 5.0 03/03/17 00:40 36.8 84 30 131/71 92 Nasal Cannula 5.0 03/03/17 00:38 Nasal Cannula 5.0 03/03/17 00:20 78 19 131/80 93 Nasal Cannula 4 03/03/17 00:10 76 19 124/85 93 Nasal Cannula 4 03/03/17 00:01 82 21 157/79 94 Nasal Cannula 6 Notes I just saw the pt this morning. His was with him. He seems to be doing remarkably well considering his aspiration pneumonitis, just 12 hours out from the inciting event. He's on prophylactic Zosyn and bronchodilators. He was on room air when I saw him, reportedly satting in the low-mid 90s. He appeared to be in no distress and in good spirts. He gets pretty fatigued and winded w/ exertion which is understandable. I spoke to he and his and explained again what happened and told them I was sorry that it did. I'd like to watch him for another 12 hours but he certainly does not appear to be developing ALI/ ARDS. I told him I'd be available if he had any further questions.
[2017-03-03] MEDS ORDERED: FAMOTIDINE 20 MG TAB PO ONE (22:05)
[2017-03-04] VITALS (14 sets, daily range): BP systolic 108–142; BP diastolic 65–71; PULSE 68–106; TEMP 36.4–38.4; O2SAT 91–99
[2017-03-04] MEDS: LEVALBUTEROL 1.25MG/0.5ML NEB INH SCH ×4 (02:00→19:23)
[2017-03-04] MEDS: IPRATROPIUM BROMIDE NEB SOLN 0.02% 2.5 ML VIAL INH SCH ×4 (02:00→19:23)
[2017-03-04] MEDS: PIPERACILL/TAZOBAC IV 3.375 GM in DEXTROSE 5% 100ML IV SCH ×3 (05:33→20:27)
--- NOTE | 2017-03-04 07:39 | PROGRESS NOTE ---
DATE: 03/04/2017 SUBJECTIVE: The patient is very comfortable today. He continues to cough up clear to goodwin colored sputum with no hemoptysis. He states he feels well. He has very mild shortness of breath with walking. His oxygen saturation looks good at 94% on 3 liters. He is afebrile. His blood pressure 108/65. According to nurses' note, he had a good night last night. No arrhythmia. He is resting with no complaints. Endoscopy was done yesterday. I do not have that report. According to the anesthesia progress note, he did well. There is no evidence of any ARDS. OBJECTIVE: HEENT: Unremarkable. No epistaxis noted. No adenopathy is noted. Expansion of the thorax is normal with deep inspiration. No fremitus is noted. HEART: Regular rate and rhythm. LUNGS: Clear. No crackles or wheezing noted. ABDOMEN: Soft, nontender. EXTREMITIES: He has no cyanosis, clubbing or edema. The chest x-ray revealed some basilar opacities, greater on the left consistent with an aspiration pneumonia. Bronchoscopy report noted. Urine pathology was unremarkable. IMPRESSION: 1. Aspiration pneumonia. 2. Gastroesophageal reflux disease with possible esophageal stricture related to the pneumonia. There is no evidence of any acute respiratory distress syndrome. RECOMMENDATIONS: 1. At this point, the patient is on appropriate medications. He probably could be changed to Augmentin 875 b.i.d. or 500 mg t.i.d. and treat for a full 7 days with antibiotics. 2. Follow up with Dr. Malone in about 2 weeks with a chest x-ray at that time. He may need repeat bronchoscopy, as the chest film continues to show infiltrative processes at the bases. Overall, he is stable.
[2017-03-04] MEDS: FAMOTIDINE 20 MG TAB PO SCH ×2 (08:06→20:27)
--- NOTE | 2017-03-04 13:10 | Hospitalist Progress Note ---
Hospitalist Progress Note Date of Service Mar 04, 2017. (Kirstie Ingram PA-C) Subjective Pt evaluation today including: conversation w/ patient, physical exam, chart review, lab review, review of studies, review of inpatient medication list The patient was seen and examined this morning. Patient reports feeling better today than yesterday. He reports the shortness of breath has improved slightly with ambulation, notes that he is not short of breath at rest. Patient has been coughing, nonproductive, complaining of abdominal pain due to force. He complains of feeling like he is dry heaving from coughing so much. Pain in his mouth and gums has improved since yesterday. Patient has been tolerating soft foods without difficulty, he has been eating what he considers adequate, denies being afraid to eat. He has not yet had a bowel movement but is passing gas. Additional Comments: Constitutional: No fever, chills, sweats, fatigue or weakness Eyes: No diplopia, no changes in vision ENT: No sore throat, tinnitus, or trouble swallowing Respiratory: + cough, nonproductive, + Shortness of breath with ambulation, No dyspnea at rest Cardiovascular: No chest pain, palpitations, or flutter Abdomen: + Has not yet had a bowel movement, + passing gas, No pain, No constipation, No diarrhea, No nausea, No vomiting Musculoskeletal: No calf pain, No joint pain, No swelling Genitourinary : No dysuria or urinary frequency, No hematuria Neurologic: No numbness/tingling, no difficulty with ambulation, no sensory or motor deficits Psychiatric: No depression or anxiety symptoms Endocrine: No fatigue, No weight changes Integumentary: No itch, No rash (Kirstie Ingram PA-C) Objective Vital Signs Date Time Temp Pulse Resp B/P Pulse Ox O2 Delivery O2 Flow Rate FiO2 03/04/17 12:00 95 Nasal Cannula 3.0 03/04/17 11:40 36.6 68 18 142/71 95 03/04/17 08:00 95 Nasal Cannula 3.0 03/04/17 07:32 36.4 68 18 113/68 95 03/04/17 07:25 87 18 95 Nasal Cannula 3.0 03/04/17 04:17 36.8 88 19 108/65 94 Nasal Cannula 3.0 03/04/17 04:00 Nasal Cannula 3.0 03/04/17 02:01 95 18 96 Nasal Cannula 3.0 03/04/17 00:01 Nasal Cannula 3.0 03/03/17 23:54 37.1 98 21 103/55 91 Nasal Cannula 3.0 03/03/17 20:00 Nasal Cannula 3.0 03/03/17 19:25 82 18 95 Nasal Cannula 3.0 03/03/17 18:56 36.8 90 18 120/64 96 Nasal Cannula 3.0 Humidified Oxygen 03/03/17 16:00 Nasal Cannula 3.0 03/03/17 15:35 36.9 104 20 126/69 92 Nasal Cannula 3.0 Humidified Oxygen 03/03/17 14:11 78 14 85 Room Air (Kirstie Ingram, PA-C) Physical Exam Notes: General: awake, alert, no apparent distress Head: Normocephalic, atraumatic ENT: PERRL, EOMI, no pharyngeal exudate, mucous membranes moist Chest: Diminished breath sounds throughout but slightly improved compared to yesterday, left base with faint crackles, + cough, nonproductive, on 3 L O2 via NC Cardiac: Regular rate and rhythm, no murmur, no JVD, normal peripheral pulses, good capillary refill Abdominal: NABS x 4 quadrants, soft, nontender to palpation, no rebound, guarding or tenderness Extremities: Normal inspection, no peripheral edema or erythema, calfs nontender to palpation Psych: Normal mood and affect Neuro: AAO x 3, strength intact bilaterally and related 5/5, no motor deficits, speech is clear, no peripheral sensory deficits (Kirstie Ingram, PA-C) Assessment and Plan 61-year-old male status post EGD for food bolus and status post flexible and rigid bronchoscopy for foreign body retrieval from left mainstem bronchus. Currently on nasal cannula. Aspiration pneumonitis : Status post bronchoscopy Chest x-ray reviewed: IMPRESSION: Bibasilar opacities, greater on the left. The findings suggest pneumonia and could be seen in the setting of aspiration. Radiographic follow up to ensure resolution is recommended. - O2 has been weaned down to 3L, sats ~94% today. Patient has been ambulating around the hallway. On first officer the patient was becoming tachycardic with ambulation, appears that this has improved today. Heart rate is as high as low 100s on monitor while ambulating compared to yesterday where it was as high as 140s. - Xopenex/Atrovent every 6 hours - Zosyn (day #3) - Continue pulmonary toilet with incentive spirometry, flutter - Move the patient out of telemetry Food bolus status post EGD retrieval: - EGD on 03/02: procedure aborted due to respiratory instability by Dr. Malone - Food in the middle and lower third of esophagus s/p removal: plan for repeat in 2 weeks for biopsies in the mid-esophagus and possible dilation - Possible eosinophilic esophagitis. - Cont protonix 40 mg PO daily. - Soft diet indefinitely - patient is tolerating food without difficulty Painless hematuria UA: 1+ ketones, 1+ occult blood, 10-30 RBCs - Urine culture negative - Cytology ordered - Renal ultrasound completed: 1. The kidneys demonstrate mild cortical atrophy and are without hydronephrosis. 2. The bladder was normal as imaged. DVT ppx: SCDs CODE STATUS: Full code Disposition: transfer to med/surg later today, d/c likely in 1-2 days (Kirstie Ingram PARolanda) Attending Attestation: Pt seen/examined, chart reviewed, care plan d/w RIVAS Ingram. I agree w/ the wright components of her documentation. Tele with 2 runs of atrial tach overnight. Poor appetite today. Still w/ dyspnea/cough. Still w/ O2 requirement. VSS lungs - bibasilar rales, worse on left; no increased work of breathing; no change in exam heart - tachy, s1, s2 A/P: 1. food impaction in the setting the setting of chronic dysphagia s/p EGD; concern for eosinophilic esophagitis repeat EGD 2-3 weeks [facility] soft diet PPI 2. acute hypoxic resp failure 2nd to aspiration of stomach contents - cont NC O2, abx, pulmonary toilet, time anorexia is concerning - that would suggest we are not clearing this low threshold for repeat cxr, MRSA swab, etc Tarik Day MD (Tarik Day MD)
[2017-03-04] MEDS: BENZONATATE 100MG CAP PO SCH ×2 (14:53→20:27)
[2017-03-04] MEDS: IBUPROFEN 200 MG TAB PO PRN ×2 (16:17→23:42)
[2017-03-05] VITALS (13 sets, daily range): BP systolic 124–144; BP diastolic 66–78; PULSE 85–111; TEMP 36.4–37.7; O2SAT 90–97
[2017-03-05] MEDS: IPRATROPIUM BROMIDE NEB SOLN 0.02% 2.5 ML VIAL INH SCH ×4 (02:12→19:04)
[2017-03-05] MEDS: LEVALBUTEROL 1.25MG/0.5ML NEB INH SCH ×4 (02:12→19:04)
[2017-03-05] MEDS: PIPERACILL/TAZOBAC IV 3.375 GM in DEXTROSE 5% 100ML IV SCH ×3 (05:28→20:47)
[2017-03-05] MEDS: ONDANSETRON INJ 2 MG/ML 2 ML VIAL IV PRN (06:00)
[2017-03-05] MEDS: FAMOTIDINE 20 MG TAB PO SCH ×2 (07:59→20:47)
[2017-03-05] MEDS: BENZONATATE 100MG CAP PO SCH ×3 (07:59→20:47)
[2017-03-05] MEDS: IBUPROFEN 200 MG TAB PO PRN ×2 (07:59→22:21)
--- NOTE | 2017-03-05 09:56 | DIAGNOSTIC IMAGING REPORT ---
TWO VIEW CHEST CLINICAL HISTORY: Aspiration. FINDINGS: PA and lateral chest radiographs are compared to study dated 03/03/2017. The cardiomediastinal silhouette is unremarkable. There is persistent airspace consolidation at the left lung base in the retrocardiac region. This has significantly cleared from 03/03/2017. The right lung appears clear. No pleural effusion or pneumothorax is identified. The bony thorax appears intact. IMPRESSION: There are persistent airspace opacities at the left lung base which has partially cleared from 03/03/2017. Continued follow-up to complete resolution is recommended. Electronically signed by: Dallas Stewart M.D. 03/05/2017 9:54 AM Dictated Date/Time: 03/05/2017 9:52 AM
--- NOTE | 2017-03-05 11:33 | Hospitalist Progress Note ---
Hospitalist Progress Note Date of Service Mar 05, 2017. (Marah Burnette ., TELLYC) Subjective Pt evaluation today including: conversation w/ patient, physical exam, chart review, lab review, review of studies, review of inpatient medication list Pain: None PO Intake: Tolerating soft diet Voiding: no voiding problems Patient reports feeling well currently, but he states that he had a rough night. He reports having a productive cough with black/brown sputum as well as wheezing and shortness of breath when he was trying to sleep. Shortly after waking up this morning, however, he began to feel much better. He was able to ambulate in the hallway without any dyspnea. He denies any shortness of breath , coughing or wheezing currently. He does sometimes have some bilateral flank pain secondary to his coughing although he states that this is not bothering him right now. The patient was able to eat breakfast without any issues, although he did not finish his meal. He states that he had a good appetite last night prior to going to bed and believes his decreased appetite this morning is due to him not feeling well overnight. The patient denies fevers, chills, sweats, chest pain, palpitations, claudication, nausea, vomiting, dysuria, hematuria, urinary retention, paralysis, weakness, numbness and tingling. Additional Comments: See HPI for pertinent positives and negatives. All other systems reviewed and negative. (Marah Burnette ., RIVAS-C) Objective Vital Signs Date Time Temp Pulse Resp B/P Pulse Ox O2 Delivery O2 Flow Rate FiO2 03/05/17 08:00 95 Nasal Cannula 3.0 03/05/17 07:26 36.4 111 22 131/77 93 Nasal Cannula 2.0 Humidified Oxygen 03/05/17 06:59 101 28 90 Nasal Cannula 2.0 03/05/17 04:10 91 Nasal Cannula 2.0 03/05/17 03:29 37.7 101 20 124/66 91 Nasal Cannula 2.0 03/05/17 02:12 89 16 94 Nasal Cannula 2.0 03/05/17 00:10 Nasal Cannula 2.0 03/04/17 23:37 38.4 106 22 134/68 97 Nasal Cannula 2.0 03/04/17 20:30 91 Nasal Cannula 2.0 03/04/17 19:23 72 18 91 Nasal Cannula 2.0 03/04/17 19:09 37.3 106 18 120/71 91 Nasal Cannula 2.0 03/04/17 16:00 95 Nasal Cannula 3.0 03/04/17 15:39 37.0 105 16 139/68 99 03/04/17 14:32 81 18 95 Nasal Cannula 3.0 03/04/17 12:00 95 Nasal Cannula 3.0 03/04/17 11:40 36.6 68 18 142/71 95 (Marah Burnette PA-C) Physical Exam General Appearance: WD/WN, no apparent distress Eyes: normal inspection, PERRL, EOMI ENT: normal ENT inspection, hearing grossly normal, pharynx normal Neck: supple, no JVD, trachea midline Respiratory/Chest: normal breath sounds, no respiratory distress, + crackles ( slight crackles left base) Cardiovascular: regular rate, rhythm, no gallop, no murmur Abdomen: normal bowel sounds, soft, + tenderness (bilateral flanks very mildly TTP) Extremities: non-tender, normal inspection, no pedal edema Neurologic/Psychiatric: alert, normal mood/affect, oriented x 3 Skin: normal color, warm/dry, no rash (Marah Burnette, RIVAS-C) Diagnostic Results Reviewed the following studies and agree with interpretation as follows: Patient Name: RENITA ALVES Unit Number: [id number] Dictated: 03/05/17951 Transcribed: 03/05/17951 EV Printed Date/Time: [~ rep prt dt]/[~ rep prt tm] [~ rep ct labl] - [~ rep ct ivnm] [facility] [place] [address] Dictated: 03/05/17951 Transcribed: 03/05/17951 EV Printed Date/Time: [~ rep prt dt]/[~ rep prt tm] [~ rep ct labl] - [~ rep ct ivnm] Patient: RENITA ALVES Address1: [address] [place] [address] Rec: [id number] Address2: Acct ID: [id number] [facility] Zip: [place] [address] Date: 1955 Sex: M Room/Bed: [facility] Ref Phy: Kevin Carvalho D.O. SC: [email or web address] Att Phy: Tarik Day MD Report #: [id number] Colleen Phy: Kevin Carvalho D.O. Test: CXR Admit Phy: Eleno Valencia M.D. Track Supervisor: MAURY Interpreting Phy: Dallas Stewart M.D. Diagnosis: ASPIRATION PNEUMONITIS, ESOPHAGEAL OBSTRUCTION Ordering Phy: Tarik Day MD Service Date: 03/05/17 Admit Date: 03/02/1704/10/17 MNE: [id number] CONF: DICTATED BY: Dallas Stewart M.D.]] CC: Kevin Carvalho D.O. Siuta, Jonathan R., MD Endcc: [~ rep ct add3]] TWO VIEW CHEST CLINICAL HISTORY: Aspiration. FINDINGS: PA and lateral chest radiographs are compared to study dated 03/03/2017. The cardiomediastinal silhouette is unremarkable. There is persistent airspace consolidation at the left lung base in the retrocardiac region. This has significantly cleared from 03/03/2017. The right lung appears clear. No pleural effusion or pneumothorax is identified. The bony thorax appears intact. IMPRESSION: There are persistent airspace opacities at the left lung base which has partially cleared from 03/03/2017. Continued follow-up to complete resolution is recommended. Electronically signed by: Dallas Stewart M.D. 03/05/2017 9:54 AM Dictated Date/Time: 03/05/2017 9:52 AM The status of this report is Signed. Draft = Not yet reviewed or approved by Radiologist. Signed = Reviewed and approved by Radiologist. <AttendingPhy>Tarik Day MD</AttendingPhy> <FamilyPhy>Kevin Carvalho D.O.</FamilyPhy> <PrimaryPhy>Kevin Carvalho D.O.</PrimaryPhy> < UnitNumber>[id number]</UnitNumber> <VisitNumber>[id number]</VisitNumber> < PatientName>SHANARIANPETRRENITA Rogelio</PatientName> <DateOfBirth>1955</DateOfBirth > <Location>C.2T</Location> <ServiceDate>03/02/17</ServiceDate> <MNE>ESINDI</MNE > <OrderingPhy>Tarik Day MD</OrderingPhy> <OrderingPhyMNE>f rep ord dr evans</OrderingPhyMNE> <DictatingPhyMNE>f rep dict dr evans</DictatingPhyMNE> < CCListMNE>f rep ct mne</CCListMNE> <AdmittingPhyMNE>f pt admit dr evans</ AdmittingPhyMNE> <AttendingPhyMNE>f pt attend dr evans</AttendingPhyMNE> <ConsultingPhyMNE>f pt consult dr evans</ConsultingPhyMNE> <FamilyPhyMNE>f pt fam dr evans</FamilyPhyMNE> <OtherPhyMNE>f pt other dr evans</OtherPhyMNE> < PrimaryPhyMNE>f pt prim care dr evans</PrimaryPhyMNE> <ReferringPhyMNE>f pt referring dr evasn</ReferringPhyMNE> (Marah Burnette ., JAMAAL) Assessment and Plan 61 y/o male with a history of a food bolus s/p EGD and bronchoscopy for foreign body retrieval. No other significant past medical history. Patient does not wear supplemental oxygen at home. Aspiration pneumonitis--stable -Admit to telemetry. The patient was in sinus tachycardia overnight with heart rate in the 110s and up to 130s. Transfer to med/surg on 03/05 -O2 by protocol. Currently saturating at 93% on 2 L. Ambulating in the hallway without dyspnea -CXR on 03/03 showed bibasilar opacities, left greater than right. Suggestive of pneumonia in the setting of aspiration. Radiographic follow-up to ensure resolution is recommended. -Repeat CXR on 03/05 shows persistent airspace opacities in the left lower lobe, partially cleared from 03/03 study. Continued follow-up to resolution is recommended -Xopenex/Atrovent nebulizers QIDR and q2h prn SOB/wheezing -Continue IV Zosyn. Day #4 -Continue incentive spirometry and flutter valve -Sputum culture pending -MRSA nares pending Food bolus s/p EGD -EGD with Dr. Amato on 03/02: Procedure aborted due to hypoxia. Fluid found in the middle and lower third of esophagus, successfully removed. Esophageal mucosal changes suggestive of eosinophilic esophagitis. Stomach and duodenum normal. Recommend Protonix 40 mg PO qd. Soft diet indefinitely. Repeat EGD in 2 weeks to biopsy mid-esophagus, possible dilation. -Continue Protonix 40 mg PO qd. -Patient tolerating soft diet Painless hematuria --UA positive for 1+ ketones, 1+ occult blood, 10-30 RBCs -Urine culture negative -Cytology negative for high-grade urothelial carcinoma -Renal ultrasound shows mild cortical atrophy of kidneys without hydronephrosis. Bladder normal DVT prophylaxis -SCDs -Encourage ambulation Code Status -Level I, FULL RESUSCITATION STATUS This chart was completed in part utilizing [employer] Speech Voice Recognition software. Attempts were made to minimize the grammatical errors, random word insertions, pronoun errors and incomplete sentences. Any formal questions or concerns about the content, text or information contained within the body of this dictation should be directly addressed to the provider for clarification. (Marah Burnette ., PA-C) Attending Attestation: Pt seen/examined, chart reviewed, care plan d/w PA Marah Burnette. I agree w/ the wright components of her documentation. Still with cough/sob. Swallowing is ok. VSS o2 sats stable on NC O2 gen - NAD no increased work of breathing lungs - mild rales bases A/P: 1. esophageal impaction s/p emergent EGD 2. concern of eosinophilic esophagitis 3. aspiration pneumonitis in the setting of #1 with resulting acute hypoxic resp failure cont supportive care, PPI, IV abx therapy wean NC O2 as tolerated Tarik Day MD (Tarik Day MD)
[2017-03-05] MEDS ORDERED: GUAIFENESIN/CODEINE 100MG/10MG 5ML UDC PO SCH (21:00)
[2017-03-06] VITALS (7 sets, daily range): BP systolic 127–143; BP diastolic 75–81; PULSE 84–97; TEMP 36.5–37.1; O2SAT 88–93
[2017-03-06] MEDS: IPRATROPIUM BROMIDE NEB SOLN 0.02% 2.5 ML VIAL INH SCH ×3 (01:43→14:30)
[2017-03-06] MEDS: LEVALBUTEROL 1.25MG/0.5ML NEB INH SCH ×3 (01:43→14:30)
[2017-03-06] MEDS: PIPERACILL/TAZOBAC IV 3.375 GM in DEXTROSE 5% 100ML IV SCH (06:34)
[2017-03-06 06:56] LABS: HEMATOCRIT 36.2 % (42-52); MEAN CELL VOLUME 88.3 fL (80-100); MEAN CORPUSCULAR HEMOGLOBIN 30.7 pg (25-34); MEAN CORPUSCULAR HGB CONC 34.8 g/dl (32-36); MEAN PLATELET VOLUME 8.8 fL (7.4-10.4); PLATELET COUNT 162 K/uL (130-400); WHITE BLOOD COUNT 5.26 K/uL (4.8-10.8)
[2017-03-06 07:28] LABS: BUN/CREATININE RATIO 16.2 (10-20); CALCIUM 8.4 mg/dl (8.5-10.1); POTASSIUM 3.7 mmol/L (3.5-5.1)
[2017-03-06] MEDS: BENZONATATE 100MG CAP PO SCH ×2 (08:45→15:12)
[2017-03-06] MEDS: FAMOTIDINE 20 MG TAB PO SCH (08:45)
[2017-03-06] MEDS ORDERED: BENZ100C7 PO (11:22)
[2017-03-06] MEDS ORDERED: FAMO20TA12 PO (11:22)
[2017-03-06] MEDS ORDERED: GUAISYP4 PO (11:22)
[2017-03-06] MEDS ORDERED: AMOX875T PO (11:36)
[2017-03-06] MEDS ORDERED: [UNRECOGNIZED DRUG - CODE] (12:18)
[2017-03-06] MEDS ORDERED: PRT40 PO (12:18)
[2017-03-06] MEDS ORDERED: IPRASOL4 INH (12:18)
--- NOTE | 2017-03-06 12:22 | Discharge Instructions ---
Discharge Instructions Date of Service Mar 06, 2017. Admission Reason for Admission: Aspiration Pneumonitis, Esophageal Obstruction Discharge Discharge Diagnosis / Problem: Esophageal obstruction, aspiration pneumonitis Discharge Goals Goal(s): Decrease discomfort, Improve function, Diagnostic testing, Therapeutic intervention Activity Recommendations Activity Limitations: resume your previous activity (as tolerated) . Instructions / Follow-Up Instructions / Follow-Up You were admitted to the hospital after presenting to the ER with complaints of something stuck in her esophagus. An emergent EGD, or upper endoscopy, was done which found a food bolus in the mid and lower sections of the esophagus. This was successfully removed. Due to drops in your oxygen saturations, the procedure had to be aborted. Dr. Malone of pulmonology performed a bronchoscopy and was able to retrieve pieces of aspirated material from the lungs. You were diagnosed with aspiration pneumonitis, or inflammation of the lung tissues, which was confirmed on chest x-ray. You were started on nebulizers to help with your breathing as well as a broad-spectrum IV antibiotic to treat the pneumonitis, and started on a soft diet. Your EGD also showed evidence of eosinophilic esophagitis, a chronic immune disease which can cause esophageal dysfunction and may have been responsible for the food impaction in your esophagus. You will need biopsies of the esophagus in order to confirm this diagnosis. These biopsies will be obtained in a repeat EGD in [address] Amato. Your symptoms did improve and upon discharge, you are no longer requiring supplemental oxygen. A repeat chest x-ray was done which showed improvement. You are now medically stable for discharge to home. You will continue with an oral antibiotic as below. You will also need to follow up with Dr. Malone of pulmonology for another repeat chest x-ray and possibly a repeat bronchoscopy depending on your progress. Recommendations: *Please continue eating a soft and slippery diet in order to prevent recurrence of food bolus. You may receive further recommendations depending on the results from your esophageal biopsies. Medications: *Please take Augmentin (amoxicillin/potassium clavulanate) 875/125 mg by mouth twice a day for 7 days. *You may continue taking Tessalon Perles (benzonatate) 100 mg by mouth 3 times a day for 7 days. *You may also continue taking Robitussin cough syrup 5 mL (or 1 teaspoon) by mouth at bedtime for 7 days. *Please take Protonix (pantoprazole) 40 mg by mouth twice a day. This will help reduce acid secretions and acid reflux which can aggravate esophagitis. *You may use DuoNeb nebulizers (ipratropium/albuterol) four times a day as needed for shortness of breath or wheezing. A prescription for the medication as well as the nebulizer machine has been provided. You can obtain the nebulizer machine from a medical supply store. *You may take [id number] ibuprofen as needed for flank/rib pain secondary to coughing. Follow up: *You have been scheduled to follow up with your primary care office on FridayMarch 12 at 10:50 AM. This appointment will be with Dr. Kruse, an associate of Dr. Carvalho. *Please follow up with Dr. Malone of pulmonology in 1 week for a repeat chest x-ray and possible repeat bronchoscopy. *You will need follow-up with Dr. Amato of gastroenterology in 2 weeks for a repeat EGD (upper endoscopy) to obtain esophageal biopsies. Please seek medical attention if he experiences fevers, chills, sweats, chest pain, shortness of breath, nausea, vomiting, numbness, tingling, loss of consciousness, lightheadedness, trouble swallowing, or the sensation of something stuck in your throat. Current Hospital Diet Patient's current hospital diet: Regular Diet Discharge Diet Recommended Diet: Regular Diet Diet Texture: Mechanical Soft (ground) Procedures Procedures Performed: Esophagogastroduodenoscopy removal of food bolus, Flexible and Rigid Bronchoscopies and removal of foreign body Pending Studies Studies pending at discharge: no Medical Emergencies . Who to Call and When: Medical Emergencies: If at any time you feel your situation is an emergency, please call 911 immediately. . Non-Emergent Contact Non-Emergency issues call your: Primary Care Provider Call Non-Emergent contact if: you have a fever, you have any medication questions . Past History Medical & Surgical History: (1) Esophageal obstruction due to food impaction (2) Aspiration pneumonitis . "Provider Documentation" section prepared by Marah Burnette. Attending Attestation: Pt seen & examined, care plan d/w RIVAS Burnette on the day of discharge. I agree with her discharge instructions as outlined. Tarik Day MD VTE Core Measure Inpt VTE Proph given/why not?: Treatment not indicated (pt able to frequently ambulate)
--- NOTE | 2017-03-06 14:17 | Discharge Summary ---
Discharge Summary Date of Service Mar 06, 2017. (Marah Burnette ., JAMAAL) Discharge Summary Admission Date: Mar 03, 2017 at 00:09 Discharge Date: Mar 06, 2017 Discharge Disposition: Home Principal Diagnosis: Aspiration pneumonitis, esophageal obstruction due to food bolus Procedures: EGD: Impression: - The procedure was aborted due to the patient's respiratory instability (hypoxia). Dr. Malone was consulted for bronchoscopy. - Food in the middle third of the esophagus and in the lower third of the esophagus. Removal was successful. - Esophageal mucosal changes suggestive of eosinophilic esophagitis. - Normal stomach. - Normal examined duodenum. Recommendation: - Use Protonix (pantoprazole) 40 mg PO daily. - Soft diet indefinitely. - Repeat the upper endoscopy in 2 weeks for biopsies of the mid-esophagus and possible dilation. Bronchoscopy: Trachea: Diffuse aspiration secretions but otherwise anatomically within normal limits Keyla: Diffuse aspirated secretions otherwise anatomically within normal limits Right bronchial tree: Right mainstem bronchus: Anatomically within normal limits Right upper lobe: Anatomically within normal limits Bronchus intermedius: Anatomically within normal limits Right middle lobe: Anatomically within normal limits Right lower lobe: Anatomically within normal limits Findings: Diffuse aspirated material with the lung parenchyma easily friable to minimal bronchoscopic intervention Left bronchial tree: Left mainstem bronchus: 3 large aspirated food particulates in the left mainstem without complete obstruction Left upper lobe: Diffuse aspirated material obstructing the apical subsegment of the left upper lobe Lingula: Diffuse aspirated material Left lower lobe: Multiple aspirated material obstructing the left lower lobe takeoff Findings: Multiple subsegments occluded by aspirated material As we were unable to remove the larger particulates from the airway we then switched to the Dumon rigid trachea-scope size 12.2 The patient was extubated in the trachea scope was easily slid into position. Following this the large optical forceps were used for removal of 3 large pieces of aspirated material from the left mainstem. Following this the forceps were used to remove large particulates obstructing the takeoff to the left upper lobe apical subsegment as well as obstructing the left lower lobe. Within switch back to the Olympus flexible bronchoscope and all subsegments were flushed clean of all particulate material. At the end of the procedure the airways were globally inflamed can easily friable to minimal manipulation. Consultations: Gastroenterology--Dr. Amato Pulmonology--Dr. Malone (Marah Burnette, PA-Mónica) Problems/Secondary Diagnoses: acute hypoxic respiratory failure 2nd to aspiration pneumonitis - resolved microscopic hematuria (Tarik Day MD) Medication Reconciliation New Medications: Amoxicillin & Pot Clavulanate (Augmentin 875-125 mg) 1 Tab Tab 1 TAB PO BID for 7 Days, #14 TAB Take 1 tablet by mouth twice a day for 7 days. Ipratropium-Albuterol (Duoneb) 3 Ml Nebu 1 TREATMENT INH QID PRN for SOB/Wheezing for 14 Days, #56 INHA Use one treatment 4 times a day as needed for shortness of breath or wheezing. Nebulizers (Nebulizer) 1 Mis Mis UNIT, #1 Pantoprazole (Pantoprazole Sodium) 40 Mg Tab 40 MG PO BID for 30 Days, #60 TABS Take 1 tablet by mouth twice a day. Benzonatate (Benzonatate) 100 Mg Cap 100 MG PO TID for 7 Days, #21 CAP Take 1 capsule by mouth three times a day. Guaifenesin/Codeine (Robitussin-Ac Syrup) Syrp 5 ML PO HS for 7 Days, #35 ML Take 5 mL (1 teaspoon) by mouth at bedtime. Referrals At Discharge Follow up Referrals: Family Practice Referral - Within 1 Week with Kevin Carvalho D.O. Licensed Midwife Referral - Within 2 Weeks with Boogie Amato D.O. Extruder Operator Multiple Referral - Within 1-2 Weeks with Chema Malone MD Discharge Exam Patient reports feeling well. He said he had a better night and was able sleep. After he woke up this morning, he did have some more coughing with brown sputum as well as wheezing and shortness of breath, but this resolved after an hour or two. On my examination, he states that he feels great. He is resting comfortably on room air. He denies any shortness of breath or wheezing now. He reports that he was just up ambulating in the hallways without any oxygen and did not have any dyspnea. His coughing has also improved, as well as the associated bilateral flank pain that occurs during his coughing fits. He denies any difficulties tolerating his diet and denies any pain in his mouth or gums. The patient denies fevers, chills, sweats, chest pain, palpitations, claudication, nausea, vomiting, abdominal pain, dysuria, hematuria, urinary retention, paralysis, weakness, numbness and tingling. Review of Systems: Constitutional: No chills, No fever, No sweats Eyes: No diplopia, No eye pain, No worsening of vision ENT: No hearing loss, No sore throat, No trouble swallowing Respiratory: + cough, + shortness of breath (upon waking up, now resolved), + sputum (brown), + wheezing (this morning after waking up, now resolved) Cardiovascular: No chest pain, No claudication, No palpitations Abdomen: No nausea, No pain, No vomiting Musculoskeletal: No calf pain, No joint pain, No muscle pain Genitourinary - Male: No dysuria, No hematuria, No urinary retention Neurologic: No numbness/tingling, No paralysis, No weakness Integumentary: No color change, No itch, No rash Physical Exam: General Appearance: WD/WN, no apparent distress Eyes: normal inspection, PERRL, EOMI ENT: normal ENT inspection, hearing grossly normal, pharynx normal Neck: supple, no JVD, trachea midline Respiratory/Chest: lungs clear, no respiratory distress, + decreased breath sounds (tight but improved) Cardiovascular: regular rate, rhythm, no gallop, no murmur Abdomen / GI: normal bowel sounds, non tender, soft Extremities: normal inspection, no calf tenderness, no pedal edema Neurologic/Psychiatric: alert, normal mood/affect, oriented x 3 Skin: normal color, warm/dry, no rash (Marah Burnette ., PA-C) Hospital Course 61 y/o male with a history of a food bolus s/p EGD and bronchoscopy for foreign body retrieval. No other significant past medical history. Patient does not wear supplemental oxygen at home. Aspiration pneumonitis--stable -Admit to telemetry. The patient was in sinus tachycardia overnight with heart rate in the 110s and up to 130s. Transfer to med/surg on 03/05 -O2 by protocol. Currently saturating at 93% on room air. Ambulating in the hallway without dyspnea on room air. -CXR on 03/03 showed bibasilar opacities, left greater than right. Suggestive of pneumonia in the setting of aspiration. Radiographic follow-up to ensure resolution is recommended. -Repeat CXR on 03/05 shows persistent airspace opacities in the left lower lobe, partially cleared from 03/03 study. Continued follow-up to resolution is recommended -Xopenex/Atrovent nebulizers QIDR and q2h prn SOB/wheezing. Can continue on discharge QIDR prn -Continue IV Zosyn. Day # 5 -D/C to home with Augmentin 875 mg PO BID x 7 days -Continue incentive spirometry and flutter valve -Sputum culture shows light normal roe -MRSA nares negative -Pulmonology cleared pt for discharge -F/u with Dr. Malone in 1 week for repeat CXR, may need repeat bronchoscopy Food bolus s/p EGD -EGD with Dr. Amato on 03/02: Procedure aborted due to hypoxia. Fluid found in the middle and lower third of esophagus, successfully removed. Esophageal mucosal changes suggestive of eosinophilic esophagitis. Stomach and duodenum normal. Recommend Protonix 40 mg PO qd. Soft diet indefinitely. Repeat EGD in 2 weeks to biopsy mid-esophagus, possible dilation. -Patient tolerating soft diet -Start Protonix 40 mg PO BID for possible eosinophilic esophagitis -Needs repeat EGD with Dr. mAato in 2 weeks for esophageal biopsies, possible dilation Painless hematuria --UA positive for 1+ ketones, 1+ occult blood, 10-30 RBCs -Urine culture negative -Cytology negative for high-grade urothelial carcinoma -Renal ultrasound shows mild cortical atrophy of kidneys without hydronephrosis. Bladder normal DVT prophylaxis -SCDs -Encourage ambulation Code Status -Level I, FULL RESUSCITATION STATUS This chart was completed in part utilizing [employer] Speech Voice Recognition software. Attempts were made to minimize the grammatical errors, random word insertions, pronoun errors and incomplete sentences. Any formal questions or concerns about the content, text or information contained within the body of this dictation should be directly addressed to the provider for clarification. Total Time Spent: Greater than 30 minutes This includes examination of the patient, discharge planning, medication reconciliation, and communication with other providers. (Marah Burnette ., PA-C) Attending Discharge Note & Attestation: Pt seen/examined, chart reviewed, and care plan d/w RIVAS Burnette on day of discharge. I agree w/ the wright components of her discharge summary. 61yo male who presented with esophageal food impaction. Underwent emergent EGD by Dr. Amato with successful disimpaction. The EGD was complicated, however, by an aspiration event leading to acute hypoxic respiratory failure and development of aspiration pneumonitis. He subsequently received IV antibiotic therapy and supportive care. He was started on a soft/slippery diet and he tolerated this well. His O2 was weaned off by time of discharge. He will complete a course of augmentin following discharge. Repeat EGD will be repeated by Dr. Amato within 2-3 weeks for dilatation of the esophagus as well as biopsies to exclude eosinophilic esophagitis. He will d/c home on PPI. Discharge exam - gen - NAD neck - no JVD heart - tachy, s1, s2, no murmur lungs - bibasilar rales, worse on the left; no increased work of breathing abd - soft, NT ext - no edema The patient was advised TO REMAIN OUT OF WORK UNTIL HE WAS SEEN BY HIS PCP within a week of discharge. Tarik Day MD (Tarik Day MD) Discharge Instructions Please refer to the electronic Patient Visit Report (Discharge Instructions) for additional information. (Marah Burnette ., PA-C) Additional Copies To Kevin Carvalho D.O.; Boogie Amato D.O.; Chema Malone MD
[2017-03-14] MEDS ORDERED: PANT40TA PO (08:42)
[2017-03-21] MEDS ORDERED: GUAI1TAB69 PO (10:49)
[2017-03-21] MEDS ORDERED: IBUP-1050 PO (10:49)
[2017-03-21] MEDS ORDERED: IPRASOL4 INH (10:49)
--- NOTE | 2017-03-23 16:06 | History and Physical ---
History & Physical Date & Time of Service: Mar 03, 2017 at 4:47 Chief Complaint: Aspiration Pneumonitis, Esophageal Obstruction Primary Care Physician: Kevin Carvalho D.O. History of Present Illness 61-year-old male with no significant past medical history presented to the ER with complaints of "something stuck in his esophagus" while he was eating a pork chop. He had difficulty swallowing any fluids. He did have a similar episode about 10 years ago when he had a piece of food stuck but it had passed on its own. He was taken for an emergent EGD . The food bolus was pushed into his stomach. He was noted to have desaturations to around 78 and a quick bronchoscopic survey by the anesthesiologist revealed complete obstruction of his left mainstem bronchus. Dr. Malone was consulted who performed a flexible bronchoscopy and rigid bronchoscopy and retrieved 3 large pieces of aspirated material from the left main stem bronchus. He was recovered in the ICU and placed on a mask with 10 L O2. He was transferred to telemetry for further monitoring. He is currently on 5 L O2 via nasal cannula. Denies any chest pain/tightness, shortness of breath, palpitations, dizziness. Complains of soreness in his throat. Family History Unknown family medical history Social History Smoking Status: Never Smoker Smokeless Tobacco Use: No Drug Use: none Marital Status: Occupational Status: employed Multi-Drug Resistant Organisms History of MDRO: No Allergies Coded Allergies: No Known Allergies (Verified , 03/21/17) Home Medications Scheduled Guaifenesin (Mucinex Maximum Strength), 1 TAB PO BID Ipratropium-Albuterol (Duoneb), 1 TREATMENT INH TID Pantoprazole (Protonix), 40 MG PO BID Scheduled PRN Ibuprofen (Advil), 200 MG PO Q6 PRN for Pain Review of Systems Constitutional: No chills, No fever Eyes: No worsening of vision ENT: + sore throat, No hearing loss Respiratory: No cough Abdomen: No nausea, No pain Musculoskeletal: No joint pain Genitourinary - Male: No hematuria Neurologic: No memory loss Physical Exam Vital Signs Date Time Temp Pulse Resp B/P Pulse Ox O2 Delivery O2 Flow Rate FiO2 03/03/17 03:25 37.0 93 20 128/74 96 Nasal Cannula 4.0 03/03/17 02:25 36.5 99 19 132/79 95 Nasal Cannula 5.0 03/03/17 01:57 88 16 95 Nasal Cannula 5.0 03/03/17 01:55 36.8 96 20 122/73 97 Nasal Cannula 5.0 03/03/17 01:25 37.2 82 22 129/76 94 Nasal Cannula 5.0 03/03/17 01:10 81 20 122/79 93 Nasal Cannula 5.0 03/03/17 00:55 37.0 81 26 133/77 92 Nasal Cannula 5.0 03/03/17 00:40 36.8 84 30 131/71 92 Nasal Cannula 5.0 03/03/17 00:38 Nasal Cannula 5.0 03/03/17 00:20 78 19 131/80 93 Nasal Cannula 4 03/03/17 00:10 76 19 124/85 93 Nasal Cannula 4 03/03/17 00:01 82 21 157/79 94 Nasal Cannula 6 03/02/17 23:46 88 21 126/87 94 Mask 8 03/02/17 23:40 36.4 91 21 137/85 95 Mask 10 03/02/17 20:40 84 18 138/83 95 Room Air 03/02/17 19:41 95 Room Air 03/02/17 19:32 36.6 97 20 146/90 95 Room Air General Appearance: WD/WN, no apparent distress Head: normocephalic Eyes: normal inspection ENT: normal ENT inspection, hearing grossly normal Neck: supple Respiratory/Chest: chest non-tender, + rhonchi, + wheezing Cardiovascular: + tachycardia Abdomen/GI: normal bowel sounds, non tender, soft Extremities/Musculoskelatal: no pedal edema Neurologic/Psych: alert, normal mood/affect, oriented x 3 Diagnostics Laboratory Results Test 03/02/17 19:56 03/03/17 01:05 White Blood Count 6.47 K/uL Red Blood Count 4.95 M/uL Hemoglobin 15.2 g/dL Hematocrit 42.0 % Mean Corpuscular Volume 84.8 fL Mean Corpuscular Hemoglobin 30.7 pg Mean Corpuscular Hemoglobin Concent 36.2 g/dl Platelet Count 207 K/uL Mean Platelet Volume 9.2 fL Neutrophils (%) (Auto) 51.5 % Lymphocytes (%) (Auto) 28.7 % Monocytes (%) (Auto) 15.0 % Eosinophils (%) (Auto) 3.6 % Basophils (%) (Auto) 1.2 % Neutrophils # (Auto) 3.33 K/uL Lymphocytes # (Auto) 1.86 K/uL Monocytes # (Auto) 0.97 K/uL Eosinophils # (Auto) 0.23 K/uL Basophils # (Auto) 0.08 K/uL RDW Standard Deviation 41.7 fL RDW Coefficient of Variation 13.6 % Immature Granulocyte % (Auto) 0.0 % Immature Granulocyte # (Auto) 0.00 K/uL Prothrombin Time 10.8 SECONDS Prothromb Time International Ratio 1.0 Activated Partial Thromboplast Time 30.1 SECONDS Partial Thromboplastin Ratio 1.2 Sodium Level 141 mmol/L Potassium Level 4.0 mmol/L Chloride Level 105 mmol/L Carbon Dioxide Level 29 mmol/L Anion Gap 7.0 mmol/L Blood Urea Nitrogen 22 mg/dl Creatinine 1.30 mg/dl Est Creatinine Clear Calc Drug Dose 75.1 ml/min Estimated GFR () 69.2 Estimated GFR (Non- 59.7 BUN/Creatinine Ratio 16.6 Random Glucose 104 mg/dl Calcium Level 8.8 mg/dl Total Bilirubin 0.6 mg/dl Aspartate Amino Transf (AST/SGOT) 28 U/L Alanine Aminotransferase (ALT/SGPT) 32 U/L Alkaline Phosphatase 63 U/L Total Creatine Kinase 228 U/L Creatine Kinase MB 3.6 ng/ml Creatine Kinase MB Ratio 1.6 Troponin I < 0.015 ng/ml Total Protein 7.8 gm/dl Albumin 4.0 gm/dl Globulin 3.8 gm/dl Albumin/Globulin Ratio 1.1 Urine Color YELLOW Urine Appearance CLEAR Urine pH 5.5 Urine Specific Wilmot 1.016 Urine Protein NEG Urine Glucose (UA) NEG Urine Ketones 1+ Urine Occult Blood 1+ Urine Nitrite NEG Urine Bilirubin NEG Urine Urobilinogen NEG Urine Leukocyte Esterase NEG Urine WBC (Auto) 0 /hpf Urine RBC (Auto) 10-30 /hpf Urine Hyaline Casts (Auto) 0 /lpf Urine Epithelial Cells (Auto) 0-5 /lpf Urine Bacteria (Auto) NEG Diagnostic Radiology CHEST ONE VIEW PORTABLE CLINICAL HISTORY: Aspiration. COMPARISON STUDY: No previous studies for comparison. FINDINGS: Lung volumes are normal. There is no pneumothorax or pleural effusion. There is no evidence of pulmonary edema. There is left lower lung consolidation. There is also suspected right infrahilar opacity. Cardiac size is normal. Mediastinal contours are normal. IMPRESSION: Bibasilar opacities, greater on the left. The findings suggest pneumonia and could be seen in the setting of aspiration. Radiographic follow up to ensure resolution is recommended. Electronically signed by: Jonah Monsivais M.D. 03/03/2017 7:06 AM Impression Assessment and Plan 61-year-old male status post EGD for food bolus and status post flexible and rigid bronchoscopy for foreign body retrieval from left mainstem bronchus. Currently on nasal cannula. Aspiration pneumonitis : Status post bronchoscopy Chest x-ray ordered - Currently on nasal cannula with 5 L O2 saturating in the high 90s - Xopenex/Atrovent every 6 hours - Zosyn Food bolus status post EGD retrieval: Impression: - The procedure was aborted due to the patient's respiratory instability (hypoxia). Dr. Malone was consulted for bronchoscopy. - Food in the middle third of the esophagus and in the lower third of the esophagus. Removal was successful. - Esophageal mucosal changes suggestive of eosinophilic esophagitis. - Normal stomach. - Normal examined duodenum. Recommendation: - Use Protonix (pantoprazole) 40 mg PO daily. - Soft diet indefinitely. - Repeat the upper endoscopy in 2 weeks for biopsies of the mid-esophagus and possible dilation. Painless hematuria UA: 1+ ketones, 1+ occult blood, 10-30 RBCs - Urine culture pending - Cytology ordered - Renal ultrasound ordered DVT prophylaxis: SCDs Full code Disposition: Monitor in telemetry Advanced Directives Existing Living Will: No Existing Power of Try Out Person: No VTE Prophylaxis VTE Risk Assessment Done? Y/N: Yes Risk Level: Moderate Given or contraindicated: Treatment not indicated (pt able to frequently ambulate) Resident Tracking Resident Involvement: Resident Care Provided Care Provided: Adult [facility] Medicine Assessment and Plan Attending Addendum: I have physically seen and examined this patient, have directed their medical care, have supervised the medical residents activities, and agree with the H&P as noted above, with the following changes: NONE
[2017-08-13] MEDS ORDERED: SILD1TAB20 PO (09:52)
== END 2017-03-06 15:30 | disposition home or self-care (01) | DRG 178 ==
LOC: ENRESERVDT → ENRESERVTM → C.EDB 19:30 → C.2T 03-03 00:09 → C.4E 03-05 14:57
PROVIDERS: ADMIT Hospitalist; ATTEND Internal Medicine
PROC: 0BC88ZZ Extirpation of Matter from Left Upper Lobe Bronchus, Via Natural or Artificial Opening Endoscopic (ICD-10-PCS; principal; 2017-03-02 20:45)
PROC: 0BC78ZZ Extirpation of Matter from Left Main Bronchus, Via Natural or Artificial Opening Endoscopic (ICD-10-PCS; principal; 2017-03-02 20:45)
PROC: 0BCB8ZZ Extirpation of Matter from Left Lower Lobe Bronchus, Via Natural or Artificial Opening Endoscopic (ICD-10-PCS; principal; 2017-03-02 20:45)
PROC: 0BC98ZZ Extirpation of Matter from Lingula Bronchus, Via Natural or Artificial Opening Endoscopic (ICD-10-PCS; principal; 2017-03-02 20:45)
DX: J69.0 Pneumonitis due to inhalation of food and vomit (principal); J95.88 Other intraoperative complications of respiratory system, not elsewhere classified; T17.528A Food in bronchus causing other injury, initial encounter; T18.128A Food in esophagus causing other injury, initial encounter; K22.2 Esophageal obstruction; R31.9 Hematuria, unspecified; R09.02 Hypoxemia

== ENCOUNTER → 2017-03-14 | Outpatient (CLI) | payer OTHER ==
[~2017-03-14] MED LIST: AMOX875T PO; BENZ100C7 PO; GUAI1TAB69 PO; GUAISYP4 PO; IBUP-1050 PO; IPRASOL4 INH; PANT40TA PO; PRT40 PO; SILD1TAB20 PO; [UNRECOGNIZED DRUG - CODE]
--- NOTE | 2017-03-14 07:15 | DIAGNOSTIC IMAGING REPORT ---
CHEST 2 VIEWS ROUTINE CLINICAL HISTORY: Aspiration pneumonia COMPARISON STUDY: 03/05/2017 FINDINGS: The heart is normal in size. There is no failure. There are minor left basilar airspace opacities/bronchial wall thickening. No pleural effusions are visualized.[ IMPRESSION: Minor left basilar airspace opacity/bronchial wall thickening. The findings remain similar to the preceding study. Electronically signed by: Cuate Jones M.D. 03/14/2017 7:13 AM Dictated Date/Time: 03/14/2017 7:11 AM
== END | disposition home or self-care (01) ==
LOC: C.RAD 07:00
PROVIDERS: ATTEND Physician Assistant
DX: J69.0 Pneumonitis due to inhalation of food and vomit (principal)

== ENCOUNTER → 2017-03-21 | Day surgery (SDC) | payer OTHER ==
[2017-03-14 08:43] VITALS: Ht 193 cm; Wt 93.2 kg
[~2017-03-21] VITALS: Ht 193 cm; Wt 93.2 kg
[~2017-03-21] MED LIST changes: -AMOX875T PO; -BENZ100C7 PO; -GUAISYP4 PO; +LIDOCAINE HCL 2% 2 ML VIAL (20MG/ML) ONE; +MIDAZOLAM HCL 1 MG/ML 2ML VIAL ONE; +ONDANSETRON INJ 2 MG/ML 2 ML VIAL ONE; +PROPOFOL IV EMULSION 10 MG/ML 20 ML VIAL IV ONE; -PRT40 PO; -[UNRECOGNIZED DRUG - CODE]
--- NOTE | 2017-03-21 11:20 | Endo History and Physical ---
History & Physical Date of Service: Mar 21, 2017. Chief Complaint: F/U FOOD BOLUS Referring Physician: DR. WILLAMS History of Present Illness 61 yo CM who presents for colonoscopy secondary to dysphagia and history of food impaction. Past Surgical History Hx Cardiac Surgery: No Hx Internal Defibrillator: No Hx Pacemaker: No Hx Abdominal Surgery: No Hx of Implantable Prosthesis: No Hx Post-Op Nausea and Vomiting: No Hx Cancer Surgery: No Hx Thoracic Surgery: No Hx Orthopedic: No Hx Urinary Tract Surgery: No Family History None Social History Smoking Status: Never Smoker Hx Substance Use: No Hx Alcohol Use: No Allergies Coded Allergies: No Known Allergies (Verified , 03/21/17) Current Medications Reported Home Medications Medications Dose Route/Sig Max Daily Dose Days Date Category Advil (Ibuprofen) 200 Mg Tab 200 Mg PO Q6 PRN 03/21/17 Reported Duoneb (Ipratropium-Albuterol) 3 Ml Nebu 1 Treatment INH TID 03/21/17 Reported Mucinex Maximum Strength (Guaifenesin) 1,200 Mg Tab 1 Tab PO BID 7 03/21/17 Reported Protonix (Pantoprazole Sodium) 40 Mg Tab 40 Mg PO BID 03/14/17 Reported Vital Signs Weight (Kilograms): 93.18 Height (Feet): 6 Height (Inches): 4 Date Time Temp Pulse Resp B/P Pulse Ox O2 Delivery O2 Flow Rate FiO2 03/21/17 10:53 36.4 75 20 129/82 95 Room Air Physical Exam General Appearance: WD/WN, no apparent distress Respiratory/Chest: Auscultation: breath sounds normal Cardiovascular: Heart Auscultation: RRR Abdomen: Bowel Sounds: normal Inspection & Palpation: soft, non-distended, no tenderness, guarding & rebound Assessment and Plan Assessment: 61 yo CM who presents for EGD secondary to dysphagia and history of food impaction. Plan: Proceed with EGD.
--- NOTE | 2017-03-21 11:37 | Discharge Instructions ---
Endoscopy Patient Instructions Date / Procedure(s) Performed Mar 21, 2017. EGD Allergy Information Coded Allergies: No Known Allergies (Verified , 03/21/17) Discharge Date / Findings Mar 21, 2017. Esophageal stricture s/p dilation to 42f Gastritis s/p biopsies Mid-esophageal biopsies Medication Instructions OK to resume all medications today as prescribed Reported Home Medications Medications Dose Route/Sig Max Daily Dose Days Date Category Advil (Ibuprofen) 200 Mg Tab 200 Mg PO Q6 PRN 03/21/17 Reported Duoneb (Ipratropium-Albuterol) 3 Ml Nebu 1 Treatment INH TID 03/21/17 Reported Mucinex Maximum Strength (Guaifenesin) 1,200 Mg Tab 1 Tab PO BID 7 03/21/17 Reported Protonix (Pantoprazole Sodium) 40 Mg Tab 40 Mg PO BID 03/14/17 Reported Provider Instructions Activity Restrictions - No exercising or heavy lifting for 24 hours. - Do not drink alcohol the day of the procedure. - Do not drive a car or operate machinery until the day after the procedure. - Do not make any important decisions or sign important papers in 24 hours after the procedure. Following Day: - Return to full activity which may include returning to work/school. Diet Start your diet with liquids and light foods (jello, soup, juice, toast). Then eat your usual diet if not nauseated. Treatment For Common After Affects For mild abdominal pain, bloating, or excessive gas: - Rest - Eat lightly - Lie on right side Follow-Up Information Follow-up with DR. WILLAMS as scheduled Anesthesia Information What You Should Know You have had a procedure that required some medicine to reduce anxiety and discomfort. This treatment is called moderate sedation. After receiving the treatment, you may be sleepy, but you will be able to breathe on your own. The effects of the treatment may last for several hours. Follow these instructions along with Activity/Diet recommendations noted above: * Do NOT do anything where dizziness or clumsiness would be dangerous. * Rest quietly at home today, then you can be up and about tomorrow. * Have a responsible person stay with you the rest of today. * You may have had an I.V. today. If so, you may take the dressing off later today. Recommendations Call your doctor if: * Trouble breathing * Continuous vomiting for more than 24 hours * Temperature above 101 degrees * Severe abdominal pain or bloating * Pain not relieved by pain medicine ordered * There is increased drainage or redness from any incision * A large amount of rectal bleeding greater than 2-3 tablespoons. (If you had a polyp/s removed or have hemorrhoids, a small amount of blood - from the rectum is to be expected.) * You have any unanswered questions or concerns. IN THE EVENT OF A SERIOUS EMERGENCY, GO TO THE NEAREST EMERGENCY ROOM Your discharge instructions were prepared by provider Boogie Amato. Patient Instructions Signature Page Brannon Hernandez Patient (or Guardian) Signature/Date: I have read and understand the instructions given to me by my caregivers. Caregiver/RN/Doctor Signature/Date: The above-named patient and/or guardian has received patient instructions on this date. + Original Patient Signature Page (only) stays with chart. Please make copy for patient.
--- NOTE | 2017-03-21 11:42 | GI REPORT ---
Procedure Date: 03/21/2017 11:14 AM Procedure: Upper GI endoscopy Indications: Dysphagia Medicines: Monitored Anesthesia Care Complications: No immediate complications. Estimated Blood Loss: Estimated blood loss: none. Procedure: Pre-Anesthesia Assessment: - Prior to the procedure, a History and Physical was performed, and patient medications and allergies were reviewed. The patient's tolerance of previous anesthesia was also reviewed. The risks and benefits of the procedure and the sedation options and risks were discussed with the patient. All questions were answered, and informed consent was obtained. Prior Anticoagulants: The patient has taken no previous anticoagulant or antiplatelet agents. ASA Grade Assessment: II - A patient with mild systemic disease. After reviewing the risks and benefits, the patient was deemed in satisfactory condition to undergo the procedure. After obtaining informed consent, the endoscope was passed under direct vision. Throughout the procedure, the patient's blood pressure, pulse, and oxygen saturations were monitored continuously. The Scope was introduced through the mouth, and advanced to the second part of duodenum. The upper GI endoscopy was accomplished without difficulty. The patient tolerated the procedure well. Findings: Mucosal changes including ringed esophagus and longitudinal furrows were found in the entire esophagus. Biopsies were taken with a cold forceps for histology. A few moderate benign-appearing, intrinsic stenoses were found. The narrowest stenosis measured 1.3 cm (inner diameter) and were traversed. A guidewire was placed and the scope was withdrawn. Dilation was performed with a Savary dilator with mild resistance at 42 Fr. Localized mild inflammation characterized by erythema was found in the gastric antrum. Biopsies were taken with a cold forceps for histology. The examined duodenum was normal. Impression: - Esophageal mucosal changes suspicious for eosinophilic esophagitis. Biopsied. - Benign-appearing esophageal stenoses. Dilated. - Gastritis. Biopsied. - Normal examined duodenum. Recommendation: - Resume previous diet. - Continue present medications. - Await pathology results. - Return to GI office as previously scheduled. oBogie Amato DO 03/21/2017 11:41:06 AM This report has been signed electronically. Note Initiated On: 03/21/2017 11:14 AM I attest to the content of the Intraoperative Record and orders documented therein, exceptions below
--- NOTE | 2017-03-21 11:48 | Anesthesiology Progress Note ---
Anesthesia Post Op Note Date & Time Mar 21, 2017 at 11:47 Vital Signs Pain Intensity: 0 Vital Signs Past 12 Hours Date Time Temp Pulse Resp B/P Pulse Ox O2 Delivery O2 Flow Rate FiO2 03/21/17 11:36 67 16 97/57 95 Room Air 03/21/17 10:53 36.4 75 20 129/82 95 Room Air Notes Mental Status: alert / awake / arousable, participated in evaluation Pt Amnestic to Procedure: Yes Nausea / Vomiting: adequately controlled Pain: adequately controlled Airway Patency, RR, SpO2: stable & adequate BP & HR: stable & adequate Hydration State: stable & adequate Anesthetic Complications: no major complications apparent
[2017-03-21 12:07] VITALS: BP 108/66; PULSE 71; O2SAT 94
== END | disposition home or self-care (01) ==
LOC: C.GI 10:29
PROVIDERS: ATTEND Internal Medicine
DX: K22.2 Esophageal obstruction (principal); K20.9 Esophagitis, unspecified; K29.50 Unspecified chronic gastritis without bleeding

== ENCOUNTER → 2017-06-11 | Outpatient (CLI) | payer OTHER ==
[~2017-06-11] MED LIST changes: -LIDOCAINE HCL 2% 2 ML VIAL (20MG/ML) ONE; -MIDAZOLAM HCL 1 MG/ML 2ML VIAL ONE; -ONDANSETRON INJ 2 MG/ML 2 ML VIAL ONE; -PROPOFOL IV EMULSION 10 MG/ML 20 ML VIAL IV ONE
--- NOTE | 2017-06-11 07:09 | DIAGNOSTIC IMAGING REPORT ---
CHEST 2 VIEWS ROUTINE HISTORY: 61 years Male J69.0 Aspiration pneumonitis COMPARISON: Chest radiograph 03/14/2017 TECHNIQUE: Frontal and lateral views of the chest FINDINGS: Cardiomediastinal and hilar silhouettes are within normal limits. No pneumothorax or pleural effusion. There is improved aeration of the left lung base compared to prior exam. Hazy subsegmental opacity is present within the right lung base. Lungs are mildly hyperinflated with diaphragmatic flattening and increased retrosternal clear space. Uterine changes are seen throughout the spine. Upper abdomen appears unremarkable. IMPRESSION: 1. Improved aeration of the left lung base compared to prior exam. 2. Subtle subsegmental opacity of the right lung base may reflect aspiration pneumonitis within the appropriate clinical setting. No lobar air space consolidations are identified. The above report was generated using voice recognition software. It may contain grammatical, syntax or spelling errors. Electronically signed by: Julien Sanchez M.D. 06/11/2017 7:08 AM Dictated Date/Time: 06/11/2017 7:05 AM
== END | disposition home or self-care (01) ==
LOC: C.RAD 06:49
PROVIDERS: ATTEND Physician Assistant
DX: J69.0 Pneumonitis due to inhalation of food and vomit (principal); R91.8 Other nonspecific abnormal finding of lung field

== ENCOUNTER → 2017-09-03 | Day surgery (SDC) | payer OTHER ==
[2017-08-13 09:55] VITALS: BMI 25.0
[~2017-09-03] VITALS: Ht 193 cm; Wt 93.2 kg
[~2017-09-03] MED LIST changes: -GUAI1TAB69 PO; -IPRASOL4 INH; +LIDOCAINE HCL 2% 2 ML VIAL (20MG/ML) ONE; +PROPOFOL IV EMULSION 10 MG/ML 20 ML VIAL IV ONE; +SODIUM CHLORIDE 0.9% 500ML 500 ML IV ONE
[2017-09-03 13:02] VITALS: Ht 193 cm; Wt 93.2 kg
[2017-09-03 13:07] VITALS: TEMP 36.4
--- NOTE | 2017-09-03 14:08 | Endo History and Physical ---
History & Physical Date of Service: Sep 03, 2017. Chief Complaint: SCREENING 10 YEAR FOLLOW UP Referring Physician: DR WILLAMS History of Present Illness screening colonoscopy Past Surgical History Hx Cardiac Surgery: No Hx Internal Defibrillator: No Hx Pacemaker: No Hx Abdominal Surgery: No Hx of Implantable Prosthesis: No Hx Post-Op Nausea and Vomiting: No Hx Cancer Surgery: No Hx Thoracic Surgery: No Hx Orthopedic: No Hx Urinary Tract Surgery: No Family History None Social History Smoking Status: Never Smoker Hx Substance Use: No Hx Alcohol Use: No Allergies Coded Allergies: No Known Allergies (Verified , 09/03/17) Current Medications Reported Home Medications Medications Dose Route/Sig Max Daily Dose Days Date Category Sildenafil Citrate (Sildenafil Citrate (Pulmonary) 20 Mg Tab 80 Mg PO UD 08/13/17 Reported Advil (Ibuprofen) 200 Mg Tab 200 Mg PO Q6 PRN 03/21/17 Reported Protonix (Pantoprazole Sodium) 40 Mg Tab 40 Mg PO QAM 03/14/17 Reported Vital Signs Weight (Kilograms): 93.18 Height (Feet): 6 Height (Inches): 4 Date Time Temp Pulse Resp B/P (MAP) Pulse Ox O2 Delivery O2 Flow Rate FiO2 09/03/17 13:07 36.4 62 20 133/82 (99) 98 Room Air Physical Exam AAOx3 [id number] Lungs CTA Abd soft NT/ND + BS - CCE Assessment and Plan screening colonoscopy
--- NOTE | 2017-09-03 15:01 | GI REPORT ---
Procedure Date: 09/03/2017 2:17 PM Procedure: Colonoscopy Indications: Screening for colorectal malignant neoplasm Medicines: Propofol per Anesthesia Complications: No immediate complications. Estimated blood loss: None. Estimated Blood Loss: Estimated blood loss: none. Procedure: Pre-Anesthesia Assessment: - Prior to the procedure, a History and Physical was performed, and patient medications and allergies were reviewed. The patient's tolerance of previous anesthesia was also reviewed. The risks and benefits of the procedure and the sedation options and risks were discussed with the patient. All questions were answered, and informed consent was obtained. Prior Anticoagulants: The patient has taken no previous anticoagulant or antiplatelet agents. ASA Grade Assessment: II - A patient with mild systemic disease. After reviewing the risks and benefits, the patient was deemed in satisfactory condition to undergo the procedure. After I obtained informed consent, the scope was passed under direct vision. Throughout the procedure, the patient's blood pressure, pulse, and oxygen saturations were monitored continuously. The Scope was introduced through the anus and advanced to the terminal ileum, with identification of the appendiceal orifice and IC valve. The colonoscopy was performed without difficulty. The patient tolerated the procedure well. The quality of the bowel preparation was good. Findings: The perianal and digital rectal examinations were normal. Pertinent negatives include normal sphincter tone, no palpable rectal lesions and no anal lesion or abnormality was detected. The terminal ileum appeared normal. A few small-mouthed diverticula were found in the sigmoid colon. The colon (entire examined portion) appeared normal. The retroflexed view of the distal rectum and anal verge was normal and showed no anal or rectal abnormalities. Impression: - The examined portion of the ileum was normal. - Diverticulosis in the sigmoid colon. - The entire examined colon is normal. - The distal rectum and anal verge are normal on retroflexion view. - No specimens collected. Recommendation: - Discharge patient to home (ambulatory). - Resume regular diet. - Continue present medications. - Repeat colonoscopy in 10 years for screening purposes. - Return to referring physician as previously scheduled. MD Devaughn Alicea MD 09/03/2017 3:00:50 PM This report has been signed electronically. Note Initiated On: 09/03/2017 2:17 PM I attest to the content of the Intraoperative Record and orders documented therein, exceptions below
--- NOTE | 2017-09-03 15:02 | Discharge Instructions ---
Endoscopy Patient Instructions Date / Procedure(s) Performed Sep 03, 2017. Colonoscopy Allergy Information Coded Allergies: No Known Allergies (Verified , 09/03/17) Discharge Date / Findings Sep 03, 2017. sig diverticulosis int hemorrhoids Medication Instructions Restart Stopped Medication(s): Reported Home Medications Medications Dose Route/Sig Max Daily Dose Days Date Category Sildenafil Citrate (Sildenafil Citrate (Pulmonary) 20 Mg Tab 80 Mg PO UD 08/13/17 Reported Advil (Ibuprofen) 200 Mg Tab 200 Mg PO Q6 PRN 03/21/17 Reported Protonix (Pantoprazole Sodium) 40 Mg Tab 40 Mg PO QAM 03/14/17 Reported Reported Home Medications Medications Dose Route/Sig Max Daily Dose Days Date Category Sildenafil Citrate (Sildenafil Citrate (Pulmonary) 20 Mg Tab 80 Mg PO UD 08/13/17 Reported Advil (Ibuprofen) 200 Mg Tab 200 Mg PO Q6 PRN 03/21/17 Reported Protonix (Pantoprazole Sodium) 40 Mg Tab 40 Mg PO QAM 03/14/17 Reported Provider Instructions Activity Restrictions - No exercising or heavy lifting for 24 hours. - Do not drink alcohol the day of the procedure. - Do not drive a car or operate machinery until the day after the procedure. - Do not make any important decisions or sign important papers in 24 hours after the procedure. Following Day: - Return to full activity which may include returning to work/school. Diet Start your diet with liquids and light foods (jello, soup, juice, toast). Then eat your usual diet if not nauseated. Treatment For Common After Affects For mild abdominal pain, bloating, or excessive gas: - Rest - Eat lightly - Lie on right side Follow-Up Information Follow-up with DR WILLAMS as scheduled Anesthesia Information What You Should Know You have had a procedure that required some medicine to reduce anxiety and discomfort. This treatment is called moderate sedation. After receiving the treatment, you may be sleepy, but you will be able to breathe on your own. The effects of the treatment may last for several hours. Follow these instructions along with Activity/Diet recommendations noted above: * Do NOT do anything where dizziness or clumsiness would be dangerous. * Rest quietly at home today, then you can be up and about tomorrow. * Have a responsible person stay with you the rest of today. * You may have had an I.V. today. If so, you may take the dressing off later today. Recommendations Call your doctor if: * Trouble breathing * Continuous vomiting for more than 24 hours * Temperature above 101 degrees * Severe abdominal pain or bloating * Pain not relieved by pain medicine ordered * There is increased drainage or redness from any incision * A large amount of rectal bleeding greater than 2-3 tablespoons. (If you had a polyp/s removed or have hemorrhoids, a small amount of blood - from the rectum is to be expected.) * You have any unanswered questions or concerns. IN THE EVENT OF A SERIOUS EMERGENCY, GO TO THE NEAREST EMERGENCY ROOM Your discharge instructions were prepared by provider Devaughn Cole. Patient Instructions Signature Page Brannon Hernandez Patient (or Guardian) Signature/Date: I have read and understand the instructions given to me by my caregivers. Caregiver/RN/Doctor Signature/Date: The above-named patient and/or guardian has received patient instructions on this date. + Original Patient Signature Page (only) stays with chart. Please make copy for patient.
--- NOTE | 2017-09-03 15:17 | Anesthesiology Progress Note ---
Anesthesia Post Op Note Date & Time Sep 03, 2017 at 15:16 Vital Signs Pain Intensity: 0 Vital Signs Past 12 Hours Date Time Temp Pulse Resp B/P (MAP) Pulse Ox O2 Delivery O2 Flow Rate FiO2 09/03/17 15:06 60 16 107/58 (74) 96 Room Air 09/03/17 14:51 66 16 110/74 (86) 97 Room Air 09/03/17 13:07 36.4 62 20 133/82 (99) 98 Room Air Notes Mental Status: alert / awake / arousable, participated in evaluation Pt Amnestic to Procedure: Yes Nausea / Vomiting: adequately controlled Pain: adequately controlled Airway Patency, RR, SpO2: stable & adequate BP & HR: stable & adequate Hydration State: stable & adequate Anesthetic Complications: no major complications apparent
[2017-09-03 15:22] VITALS: BP 122/87; PULSE 54; O2SAT 97
== END | disposition home or self-care (01) ==
LOC: C.GI 12:47
PROVIDERS: ATTEND Internal Medicine Gastroenterology
DX: Z12.11 Encounter for screening for malignant neoplasm of colon (principal); K21.9 Gastro-esophageal reflux disease without esophagitis; K57.30 Diverticulosis of large intestine without perforation or abscess without bleeding; K64.8 Other hemorrhoids

== ENCOUNTER → 2017-11-03 | Outpatient (CLI) | payer OTHER ==
[~2017-11-03] MED LIST changes: -LIDOCAINE HCL 2% 2 ML VIAL (20MG/ML) ONE; -PROPOFOL IV EMULSION 10 MG/ML 20 ML VIAL IV ONE; -SODIUM CHLORIDE 0.9% 500ML 500 ML IV ONE
== END | disposition home or self-care (01) ==
LOC: C.RDSM 11:35
PROVIDERS: ATTEND Physical Medicine & Rehabilitation Sports Medicine
DX: M25.532 Pain in left wrist (principal)

== ENCOUNTER → 2018-06-30 | Outpatient (CLI) | payer OTHER ==
[~2018-06-30] MED LIST changes: +ALUMSUS2 PO; +GADAVIST IV PRN; -PANT40TA PO; -SILD1TAB20 PO; +SILD1TAB31 PO
--- NOTE | 2018-06-30 16:12 | DIAGNOSTIC IMAGING REPORT ---
ORBIT RADIOGRAPHS 3 VIEWS HISTORY: pre-MRI screening. COMPARISON: None. FINDINGS: There are no radiopaque foreign bodies identified within the orbits. IMPRESSION: No radiopaque foreign bodies identified within the orbits. Electronically signed by: Huey Colvin M.D. 06/30/2018 4:11 PM Dictated Date/Time: 06/30/2018 4:10 PM
--- NOTE | 2018-06-30 17:00 | DIAGNOSTIC IMAGING REPORT ---
Brain MRI WITH AND WITHOUT CONTRAST HISTORY: ANESTHESIA OF SKIN, SEXUAL DYSFUNCTION TECHNIQUE: Multiplanar multisequence MRI of the brain was performed both before and after the intravenous administration of contrast. COMPARISON STUDY: None. FINDINGS: There are no areas of restricted diffusion to suggest acute infarction. The midline structures are intact. The paranasal sinuses are clear. The mastoid air cells are clear. The ventricles and sulci are within normal limits for age. There is no mass, hematoma, midline shift. The major vascular flow-voids at the skull base are well maintained. Postcontrast sequences show no areas of abnormal enhancement. IMPRESSION: Normal brain MRI. Electronically signed by: Huey Colvin M.D. 06/30/2018 4:59 PM Dictated Date/Time: 06/30/2018 4:53 PM
== END | disposition home or self-care (01) ==
LOC: C.MRI 15:41
PROVIDERS: ATTEND Family Medicine
DX: R20.0 Anesthesia of skin (principal); R37 Sexual dysfunction, unspecified